=== PATIENT | male | born 1955 | race Caucasian/White ===

== ENCOUNTER → 2016-12-22 | Outpatient (CLI) | payer OTHER | LOC: FIMAGING 16:31 | DX: N50.89 Other specified disorders of the male genital organs (principal); N43.3 Hydrocele, unspecified ==

== ENCOUNTER 2017-01-05 12:58 | Day surgery (SDC) | payer OTHER ==
[2017-01-05] MEDS ORDERED: ceFAZolin 2 GM/DEXTROSE 100 ML IV ONE (13:17)
[2017-01-05] MEDS ORDERED: LR 1,000 ML IV ONE (13:21)
--- NOTE | 2017-01-05 14:47 | PDHPUP ---
History & Physical Update H&P update statement: This history and physical update is based on an assessment of the patient which was completed after admission or registration (within 24 hours), but prior to the surgery/procedure. H&P update: no change in patient's condition since H&P completed
[2017-01-05] MEDS ORDERED: BUPIVACAINE 0.5% 30 ML SDV ONE (16:30)
[2017-01-05] MEDS ORDERED: MIDAZOLAM 2 MG/2 ML VIAL IVP ONE (17:03)
--- NOTE | 2017-01-05 17:04 | PDANEPAE ---
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 ORAL SURGERY CHILD ANE Review of Systems - Exercise capacity METS (RN): 4 METS ANE Patient History - Allergies Allergies/Adverse Reactions: oxycodone [From Percocet] Allergy (Verified 01/03/17 14:19) Rash - Home Medications Home Medications: CLONAZEPAM TID 01/03/17 [Last Taken 01/05/17 06:00] Divalproex TID 01/03/17 [Last Taken 01/05/17 07:00] IBUPROFEN PRN 01/03/17 [Last Taken 01/03/17 22:00] - NPO status NPO Status: no food or drink >8 hours NPO Since - Liquids (Date): 01/05/17 NPO Since - Liquids (Time): 11:30 NPO Since - Solids (Date): 01/04/17 NPO Since - Solids (Time): 18:00 - Anes Hx Anes Hx: no prior problems - Smoking Hx Smoking Status: Never smoked ANE Labs/Vital Signs - Vital Signs Blood Pressure: 133/85 Heart Rate: 91 Respiratory Rate: 18 O2 Sat (%): 91 Height: 167.64 cm Weight: 78.925 kg ANE Physical Exam - Airway Mallampati Score: Class 2 Mouth exam: normal dental/mouth exam - Pulmonary Pulmonary: no respiratory distress - Cardiovascular Cardiovascular: regular rate and rhythym - ASA Status ASA Status: I ANE Anesthesia Plan Anesthesia Plan: GA w LMA
[2017-01-05] MEDS ORDERED: DEXAMETHASONE 4 MG/ML VIAL ONE (17:08)
[2017-01-05] MEDS ORDERED: LIDOCAINE 2% 5 ML SDV ONE (17:08)
[2017-01-05] MEDS ORDERED: KETOROLAC 30 MG/1 ML SDV ONE (17:08)
[2017-01-05] MEDS ORDERED: ONDANSETRON 4 MG/2 ML VIAL ONE (17:08)
[2017-01-05] MEDS ORDERED: fentaNYL 100 MCG/2 ML INJ ONE (17:09)
[2017-01-05] MEDS ORDERED: PROPOFOL 200 MG/20 ML VIAL ONE (17:09)
--- NOTE | 2017-01-05 18:38 | POSTOPPROG ---
Post Op Note Date of Operation: 01/05/17 Surgeon: Trino Farooq (# [id number]) Anesthesia: LMA, Local (Specify) (0.5% Marcaine without epi) Pre-op Diagnosis: Right testis mass Post-op Diagnosis: Right testis mass Procedure: Right radical orchiectomy Findings: See op note Inf/Abcess present in the surg proc area at time of surgery?: No EBL: Minimal (10 cc) Complications: None Specimen(s): Right testis & proximal spermatic cord
[2017-01-05] MEDS ORDERED: fentaNYL 100 MCG/2 ML INJ IVP PRN (18:44)
[2017-01-05] MEDS ORDERED: NALOXONE HCL 0.4 MG/ML INJ IVP PRN (18:44)
[2017-01-05] MEDS ORDERED: LR 500 ML IV PRN (18:44)
[2017-01-05] MEDS ORDERED: ONDANSETRON 4 MG/2 ML VIAL IVP PRN (18:44)
[2017-01-05] MEDS ORDERED: HYDROmorphONE/DILAUDID 1 MG/ML SYR IVP PRN (18:44)
[2017-01-05] MEDS ORDERED: MEPERIDINE 25 MG/ML SYR IVP PRN (18:44)
--- NOTE | 2017-01-05 18:44 | POSTANESTH ---
Post Anesthetic Evaluation Cardiovascular Status: Normal, Stable Respiratory Status: Normal, Stable Level of Consciousness/Mental Status: Can Participate in Eval Pain Control: Adequate, Prn Tx Ordered Nausea/Vomiting Control: Adequate, Prn Tx Ordered Complications Possibly Related to Anesthesia: None Noted
[2017-01-05] MEDS ORDERED: HYDROCODONE/APAP 10/325 TAB PO PRN (18:46)
[2017-01-05 19:20] VITALS: TEMP 97.7
[2017-01-05 19:22] VITALS: RESP 16; O2SAT 98
--- NOTE | 2017-01-05 19:47 | GOP ---
[f rep st] OPERATIVE REPORT DATE OF OPERATION: 01/05/2017 SURGEON: Trino Farooq MD ANESTHESIA: Laryngeal mask with local. PREOPERATIVE DIAGNOSIS: Large right testicular mass. POSTOPERATIVE DIAGNOSIS: Large right testicular mass. PROCEDURE PERFORMED: Right radical inguinal orchiectomy. FINDINGS: Extremely enlarged and abnormal right testicular epididymal complex and proximal spermatic cord. This process appeared to be contained within the tunica vaginalis. SPECIMENS: Right testis and proximal spermatic cord. INDICATIONS: This gentleman recently presented to my office with a large right scrotal mass. Evaluation revealed evidence worrisome for this mass originating from the testis. There was no evidence of inguinal hernia on examination nor on CT imaging. The patient presents for operative management at this time. The indications for the procedures as well as potential risks and complications were discussed with the patient preoperatively. He appeared to understand, his questions were answered, and he wished to proceed. Written informed surgical consent was thereafter obtained. DESCRIPTION OF PROCEDURE: The patient was brought to the operating room and administered laryngeal mask anesthesia. He was carefully placed in the supine position on the operating room table. The lower abdomen and genitalia were sterilely prepped with Betadine scrub and paint, then draped in the usual sterile fashion. A total of 30 cc of 0.5% Marcaine without epinephrine was used for local anesthetic. An extended right inguinal incision was made with the scalpel and carried through the subcutaneous tissue with electrocautery. The right testis/epididymal complex and proximal spermatic cord were immediately noted. They were extremely enlarged. The external oblique aponeurosis was not seen. The ilioinguinal nerve was also not seen. I was able to isolate the spermatic cord at the level of the pubic tubercle with a quarter-inch [place] drain. A tourniquet was created and this was placed near the level of the internal inguinal ring. I then carefully dissected the tunica vaginalis from the surrounding scrotal structures. The gubernacular attachments were ligated with 3-0 Vicryl ties. The spermatic cord was then divided into 2 segments and ligated with a combination of 2-0 silk stick ties and free ties. The stick ties were left long in the event they needed to be identified for future operative purposes. The testis and proximal spermatic cord were then divided and passed off the table. There was no obvious extravaginal extension of any type of cancerous process appreciated grossly. The operative site was carefully inspected. Any remaining bleeding was ligated with 3-0 Vicryl free ties and electrocautery as necessary. The subcutaneous layers of the incision were reapproximated with a running 2-0 Vicryl, followed by a more superficial running 3-0 Vicryl suture. The skin was reapproximated with a running 4-0 Monocryl suture in a subcuticular fashion. The incision was dressed with Dermabond. The patient was then awakened, extubated, transferred to his bed, then taken to the recovery room. He tolerated the procedure well overall. ESTIMATED BLOOD LOSS: Approximately 10 cc. COMPLICATIONS: None. DISPOSITION: He was transferred to the recovery room in stable condition. /[id number]/MODL MTDD
[2017-01-05 20:01] VITALS: BP 126/78; PULSE 80
== END 2017-01-05 20:01 | disposition home or self-care (01) ==
LOC: FSGY 12:58
PROVIDERS: ATTEND Specialist
DX: N50.9 Disorder of male genital organs, unspecified (principal)
CPT/HCPCS: J0690; J1100; J1885; J2250; J2405; J2704; J3010

== ENCOUNTER → 2017-04-13 | Outpatient (CLI) | payer OTHER ==
[~2017-04-13] MED LIST: IOPAMIDOL (ISOVUE-300) 100 ML BTL ONE
== END ==
LOC: FIMAGING 09:28
PROVIDERS: ATTEND Family Medicine
DX: C49.9 Malignant neoplasm of connective and soft tissue, unspecified (principal); R19.09 Other intra-abdominal and pelvic swelling, mass and lump
CPT/HCPCS: 74177; Q9967

== ENCOUNTER → 2017-04-24 | Outpatient (CLI) | payer OTHER | LOC: BMCIMAGING 12:17 | PROVIDERS: ATTEND Family Medicine | DX: R19.09 Other intra-abdominal and pelvic swelling, mass and lump (principal) ==

== ENCOUNTER → 2017-04-28 | Outpatient (CLI) | payer OTHER ==
[~2017-04-28] MED LIST changes: +GADOBUTROL 10 ML VIAL IVP ONE; -IOPAMIDOL (ISOVUE-300) 100 ML BTL ONE
== END ==
LOC: FIMAGING 08:52
PROVIDERS: ATTEND Family Medicine
DX: D18.03 Hemangioma of intra-abdominal structures (principal)
CPT/HCPCS: 74183; A9585

== ENCOUNTER 2017-05-11 08:20 | Day surgery (SDC) | payer OTHER ==
[2017-05-11] MEDS ORDERED: FLUMAZENIL 0.5 MG/5 ML MDV IVP PRN (08:31)
[2017-05-11] MEDS ORDERED: PROTAMINE SULFATE 50 MG/5 ML VIAL IVP PRN (08:31)
[2017-05-11] MEDS ORDERED: fentaNYL 100 MCG/2 ML INJ IVP PRN (08:31)
[2017-05-11] MEDS ORDERED: GLUCAGON HCL 1 MG VIAL IVP PRN (08:31)
[2017-05-11] MEDS ORDERED: HEPARIN 10,000 UNIT/10 ML MDV IVP PRN (08:31)
[2017-05-11] MEDS ORDERED: ALTEPLASE 2 MG VIAL IVP PRN (08:31)
[2017-05-11] MEDS ORDERED: NALOXONE HCL 0.4 MG/ML INJ IVP PRN (08:31)
[2017-05-11] MEDS ORDERED: MIDAZOLAM 2 MG/2 ML VIAL IVP PRN (08:31)
[2017-05-11] MEDS ORDERED: MEPERIDINE 25 MG/ML SYR IVP PRN (08:31)
[2017-05-11] MEDS ORDERED: NS 1,000 ML IV SCH (08:45)
[2017-05-11 09:59] LABS: INR 0.96 (0.83-1.16)
[2017-05-11] MEDS ORDERED: fentaNYL 100 MCG/2 ML INJ ONE (10:57)
[2017-05-11] MEDS ORDERED: MIDAZOLAM 2 MG/2 ML VIAL ONE (10:57)
[2017-05-11] MEDS ORDERED: LIDOCAINE 1% 300 MG/30 ML SDV ONE (11:56)
[2017-05-11] MEDS ORDERED: BUPIVACAINE 0.5% 30 ML SDV ONE (11:56)
--- NOTE | 2017-05-11 11:58 | PDGENHP ---
History & Physical Chief Complaint: Bone lesions History of Present Illness: 61 yo M w h/o head injury who is s/p right orchiectoma in 12/2016. Pathology demonstrated liposarcoma. Suspicious lesions in spine on recent MRI dated 04/28/2017. Endorses LBP with prolonged sitting. Presents today for L1 bone biopsy. Biopsy of larger lesion with similar signal characteristics in L3 chosen instead. Pertinent Past, Social, Family History: Non-contributory Relevant Physical Exam: Spine NT to palpation, good ROM Cardiorespiratory Assessment: RRR, CTAB
[2017-05-11] MEDS ORDERED: ONDANSETRON 4 MG/2 ML VIAL IVP PRN (12:02)
[2017-05-11] MEDS ORDERED: ACETAMINOPHEN 325 MG TAB PO PRN (12:02)
--- NOTE | 2017-05-11 12:02 | PDPROPOC ---
Sedation Plan of Care Sedation Plan of Care: vital signs stable, mental status noted, patient educated of risks, benefits, alternatives, patient can tolerate sedation ASA Classification: ASA 3 Planned drugs: fentanyl, midazolam Mallampati Score: Class 1 Mallampati Reference Image: Patient passed 3-3-2 rule?: Yes
--- NOTE | 2017-05-11 12:05 | PDRADPN ---
Radiology Procedure Note Date of Procedure: 05/11/17 Radiologist: Henry Felix Anesthesia: IV Sedation Pre-op Diagnosis: Liposarcoma, suspicious bone lesions Post-op Diagnosis: Same Indication: Suspicious bone lesions Procedure: L3 bone biopsy Finding(s): See dicated report Inf/Abcess present in the surg proc area at time of surgery?: No EBL: Minimal Complications: No immediate Specimen(s): 3 cores obtained, placed in formalin and submitted to pathology
[2017-05-11 12:47] VITALS: O2SAT 95
[2017-05-11 13:01] VITALS: BP 117/81; PULSE 77; RESP 17; TEMP 208.9
== END 2017-05-11 13:01 | disposition home or self-care (01) ==
LOC: FIMAGING 08:20
PROVIDERS: ATTEND Physician Assistant
PROC: 0QB03ZX Excision of Lumbar Vertebra, Percutaneous Approach, Diagnostic (ICD-10-PCS; principal; 2017-05-11 12:00)
DX: C49.9 Malignant neoplasm of connective and soft tissue, unspecified (principal); M54.5 Low back pain; Z85.47 Personal history of malignant neoplasm of testis
CPT/HCPCS: J2250; J3010

== ENCOUNTER → 2017-05-25 | Outpatient (CLI) | payer OTHER | LOC: BHFA 13:15 | PROVIDERS: ATTEND Internal Medicine Interventional Cardiology | DX: Z51.11 Encounter for antineoplastic chemotherapy (principal) ==

== ENCOUNTER → 2017-05-29 | Day surgery (SDC) | payer OTHER | END | disposition home or self-care (01) | LOC: FIMAGING 08:27 | PROVIDERS: ATTEND Internal Medicine Hematology & Oncology | PROC: 02HV33Z Insertion of Infusion Device into Superior Vena Cava, Percutaneous Approach (ICD-10-PCS; principal; 2017-05-29) | DX: C49.9 Malignant neoplasm of connective and soft tissue, unspecified (principal) | CPT/HCPCS: 36569; 77001; C1751 ==

== ENCOUNTER → 2017-05-30 | Outpatient (CLI) | payer OTHER ==
[~2017-05-30] MED LIST changes: -GADOBUTROL 10 ML VIAL IVP ONE; +LIDOCAINE 1% 300 MG/30 ML SDV ONE
== END ==
LOC: FIMAGING 08:26
PROVIDERS: ATTEND Internal Medicine Hematology & Oncology
PROC: BH48ZZZ Ultrasonography of Lower Extremity (ICD-10-PCS; principal; 2017-05-30)
PROC: 0JBC3ZX Excision of Pelvic Region Subcutaneous Tissue and Fascia, Percutaneous Approach, Diagnostic (ICD-10-PCS; principal; 2017-05-30)
DX: L90.5 Scar conditions and fibrosis of skin (principal); C62.90 Malignant neoplasm of unspecified testis, unspecified whether descended or undescended

== ENCOUNTER 2018-07-23 20:07 | Inpatient (IN) | payer OTHER ==
[2018-07-23] MEDS ORDERED: NS 1,000 ML IV ONE (20:11)
--- NOTE | 2018-07-23 20:14 | EDPHY ---
H & P Time Seen by Provider: 07/23/18 20:11 HPI/ROS: CHIEF COMPLAINT: Stroke alert HISTORY OF PRESENT ILLNESS: Patient is a 63-year-old man with a history of traumatic brain injury, seizures and testicular cancer and memory loss who apparently lives alone. EMS report that family visited him 3 weeks ago and he seemed to be at his baseline but when they visited him today he seemed paranoid and shaky. The patient was without complaints. When EMS got him into the ambulance also and he stopped talking but would answer the questions by blinking. They were concerned for stroke and called a stroke alert however upon arrival to the emergency department he began talking again. His NIH stroke score arrival is 3 for slight right-sided facial droop and dysarthria which the patient states is baseline after his traumatic brain injury. He denies being in any pain. He denies recent injury. No fevers. No report of nausea vomiting or GI symptoms. Severity: Moderate Modifying factors: Improved spontaneously REVIEW OF SYSTEMS: Constitutional: denies: chills, fever, recent illness, recent injury EENTM: denies: blurred vision, double vision, nose congestion Respiratory: denies: cough, shortness of breath Cardiac: denies: chest pain, irregular heart rate, lightheadedness, palpitations Gastrointestinal/Abdominal: denies: abdominal pain, diarrhea, nausea, vomiting, blood streaked stools Genitourinary: denies: dysuria, frequency, hematuria, pain Musculoskeletal: denies: joint pain, muscle pain Skin: denies: lesions, rash, jaundice, bruising Neurological: See HPI Hematologic/Lymphatic: denies: blood clots, easy bleeding, easy bruising Immunologic/allergic: denies: HIV/AIDS, transplant 10 systems reviewed and negative except as noted EXAM: GENERAL: Well-appearing, well-nourished and in no acute distress. HEAD: Atraumatic, normocephalic. EYES: Pupils equal round and reactive to light, extraocular movements intact, sclera anicteric, conjunctiva are normal. ENT: TMs normal, nares patent, oropharynx clear without exudates. Moist mucous membranes. NECK: Normal range of motion, supple without lymphadenopathy or JVD. LUNGS: Breath sounds clear to auscultation bilaterally and equal. No wheezes rales or rhonchi. HEART: Regular rate and rhythm without murmurs, rubs or gallops. ABDOMEN: Soft, nontender, normoactive bowel sounds. No guarding, no rebound. No masses appreciated. BACK: No CVA tenderness, no spinal tenderness, step-offs or deformities EXTREMITIES: Normal range of motion, no pitting or edema. No clubbing or cyanosis. NEUROLOGICAL: Right facial droop, slight dysarthria, no pronator drift, normal leg elevation. Cranial nerves II through XII grossly intact. 5/5 strength, normal movement in all extremities, normal sensation, normal reflexes PSYCH: Tells us thank you for evaluating him SKIN: Warm, dry, normal turgor, no visible rashes or lesions. Source: Patient Exam Limitations: No limitations - Medical/Surgical History Hx Asthma: No Hx Chronic Respiratory Disease: No Hx Diabetes: No Hx Cardiac Disease: No Hx Renal Disease: No Hx Cirrhosis: No Hx Alcoholism: No Other PMH: Traumatic brain injury, seizure, memory loss, testicular cancer - Family History Significant Family History: No pertinent family hx - Social History Smoking Status: Never smoked Alcohol Use: None Constitutional: Initial Vital Signs Temperature (C) 37 C 07/23/18 20:24 Heart Rate 107 H 07/23/18 20:24 Respiratory Rate 20 07/23/18 20:24 Blood Pressure 128/94 H 07/23/18 20:24 O2 Sat (%) 99 07/23/18 20:24 O2 Delivery Mode Nasal Cannula O2 (L/minute) 2 Allergies/Adverse Reactions: oxycodone [From Percocet] Allergy (Verified 07/23/18 20:26) Rash Home Medications: Medication Instructions Recorded Divalproex 750 mg PO DAILY 01/03/17 clonazePAM [Clonazepam] 1 mg PO TID #0 01/03/17 Medical Decision Making - Diagnostics EKG Interpretation: An EKG obtained and was read and documented in trace view. Please see trace view for full reading and report. Sinus rhythm, no acute ischemic changes, nonspecific repolarization abnormalities Imaging Results: Imaging Impressions Chest X-Ray 07/23/18 20:12 Impression: Normal chest x-ray. Head CT 07/23/18 20:12 Impression: 1. Marked central atrophy. This could be related to volume loss from prior remote trauma. Rule out NPH. Comparison with any prior remote imaging may be helpful. 2. No hemorrhage, mass effect, or definite acute peripheral infarct. If symptoms worsen, additional imaging may be necessary. Findings discussed with Jaun eVga M.D. at 4 hour, 07/23/2018. Imaging: Discussed imaging studies w/ call manager Radiologist ED Course/Re-evaluation: It is very difficult to assess exactly with the chief complaint is. I have downgraded this is not a stroke alert. The patient is answering all questions appropriately and states that his facial droop and dysarthria baseline. He is no longer blinking to communicate which she apparently did for few minutes with EMS. According to paramedics the family's original concern was shaking and paranoia. Family is supposed only on their way, will get further history from them. 9:05 p.m. the family has arrived. I spoke with them at length. They are concerned because the patient has been tapering off of Klonopin and Depakote over the last several months which she has taken for several decades to help control the symptoms of his traumatic brain injury. They are not sure what symptoms. They have never seen him have a seizure. He states that he stopped taking them altogether about 3 weeks ago. Family states that he speaks daily with his sister on the phone who has not noticed anything abnormal until yesterday when he stopped answering his phone. Today he would not answer the phone for any family which is very unusual for him. They went over and found him talking about unusual things such as blessing people and giving way [place] of dollars. They also state that he occasionally has slight tremors and occasionally has staring spells. Currently the patient answers questions appropriately but then also occasionally talks about blessing me and lasting other people in the hospital. He adamantly refuses to go back on Klonopin and Depakote. He states that he wants to be organic. Will treat with mg of Ativan for concern of absent seizures he and psychosis. Will likely admit to the medical service. 9:20 p.m. discussed the case with Dr. Bond who will admit. 10:00 p.m. Skull to the room. The patient was having an episode that appeared consistent with some type of partial seizure. He is alert and would follow commands but was shaking both hands and doing repetitive movements with pearly his right hand. He would not speak during the episode. I ordered skin dose of Ativan. resolved after few minutes. Differential Diagnosis: Partial list of the Differential diagnosis considered include but were not limited to; psychosis, seizures, withdrawal, seizures and although unlikely based on the history and physical exam, I also considered intoxication, infection, CVA. - Data Points Laboratory Results: Laboratory Results 07/23/18 20:07 07/23/18 20:07 07/23/18 07/23/18 07/23/18 20:39 20:32 20:12 WBC RBC Hgb POC Hgb 17.3 gm/dL gm/dL (13.7-17.5) Hct POC Hct 51 % % (40-51) MCV MCH MCHC RDW Plt Count MPV Neut % (Auto) Lymph % (Auto) [place] % (Auto) Eos % (Auto) Baso % (Auto) Nucleat RBC Rel Count Absolute Neuts (auto) Absolute Lymphs (auto) Absolute Monos (auto) Absolute Eos (auto) Absolute Basos (auto) Absolute Nucleated RBC Immature Gran % Immature Gran # VBG Lactic Acid 1.3 mmol/L mmol/L (0.7-2.1) POC Sodium 141 mEq/L mEq/L (135-145) Sodium POC Potassium 3.7 mEq/L mEq/L (3.3-5.0) Potassium POC Chloride 102 mEq/L mEq/L (97-110) Chloride Carbon Dioxide POC Total CO2 27 mEq/L mEq/L (22-31) Anion Gap POC BUN 33 mg/dL H mg/dL (7-23) BUN Creatinine POC Creatinine 1.0 mg/dL mg/dL (0.7-1.3) Estimated GFR Glucose POC Glucose 105 mg/dL H mg/dL (70-100) Calcium Total Bilirubin Conjugated Bilirubin Unconjugated Bilirubin AST ALT Alkaline Phosphatase POC Troponin I 0.01 ng/mL ng/mL (0.00-0.08) Total Protein Albumin Valproic Acid Ethyl Alcohol 07/23/18 07/23/18 07/23/18 20:07 20:07 20:07 WBC 7.89 10^3/uL 10^3/uL (3.80-9.50) RBC 5.26 10^6/uL 10^6/uL (4.40-6.38) Hgb 16.9 g/dL g/dL (13.7-17.5) POC Hgb Hct 49.4 % % (40.0-51.0) POC Hct MCV 93.9 fL fL (81.5-99.8) MCH 32.1 pg pg (27.9-34.1) MCHC 34.2 g/dL g/dL (32.4-36.7) RDW 12.1 % % (11.5-15.2) Plt Count 222 10^3/uL 10^3/uL (150-400) MPV 10.5 fL fL (8.7-11.7) Neut % (Auto) 65.2 % % (39.3-74.2) Lymph % (Auto) 24.8 % % (15.0-45.0) [place] % (Auto) 9.1 % % (4.5-13.0) Eos % (Auto) 0.1 % L % (0.6-7.6) Baso % (Auto) 0.5 % % (0.3-1.7) Nucleat RBC Rel Count 0.0 % % (0.0-0.2) Absolute Neuts (auto) 5.14 10^3/uL 10^3/uL (1.70-6.50) Absolute Lymphs (auto) 1.96 10^3/uL 10^3/uL (1.00-3.00) Absolute Monos (auto) 0.72 10^3/uL 10^3/uL (0.30-0.80) Absolute Eos (auto) 0.01 10^3/uL L 10^3/uL (0.03-0.40) Absolute Basos (auto) 0.04 10^3/uL 10^3/uL (0.02-0.10) Absolute Nucleated RBC 0.00 10^3/uL 10^3/uL (0-0.01) Immature Gran % 0.3 % % (0.0-1.1) Immature Gran # 0.02 10^3/uL 10^3/uL (0.00-0.10) VBG Lactic Acid POC Sodium Sodium 141 mEq/L mEq/L (135-145) POC Potassium Potassium 4.2 mEq/L mEq/L (3.5-5.2) POC Chloride Chloride 98 mEq/L mEq/L (97-110) Carbon Dioxide 25 mEq/l mEq/l (22-31) POC Total CO2 Anion Gap 18 mEq/L H mEq/L (6-14) POC BUN BUN 33 mg/dL H mg/dL (7-23) Creatinine 1.0 mg/dL mg/dL (0.7-1.3) POC Creatinine Estimated GFR > 60 Glucose 106 mg/dL H mg/dL (70-100) POC Glucose Calcium 10.2 mg/dL mg/dL (8.5-10.4) Total Bilirubin 2.4 mg/dL H mg/dL (0.1-1.4) Conjugated Bilirubin 0.6 mg/dL H mg/dL (0.0-0.5) Unconjugated Bilirubin 1.8 mg/dL H mg/dL (0.0-1.1) AST 30 IU/L IU/L (17-59) ALT 27 IU/L IU/L (21-72) Alkaline Phosphatase 62 IU/L IU/L (38-126) POC Troponin I Total Protein 8.6 g/dL H g/dL (6.3-8.2) Albumin 5.5 g/dL H g/dL (3.5-5.0) Valproic Acid < 10.0 mcg/mL L mcg/mL (50.0-150.0) Ethyl Alcohol < 10 mg/dL mg/dL (0-10) Medications Given: Discontinued Medications Sodium Chloride (Ns) 1,000 mls @ 0 mls/hr IV ONCE ONE; Wide Open PRN Reason: Protocol Stop: 07/23/18 20:12 Last Admin: 07/23/18 20:49 Dose: 1,000 mls Lorazepam (Ativan Injection) 1 mg IVP EDNOW ONE Stop: 07/23/18 21:05 Last Admin: 07/23/18 21:10 Dose: 1 mg Lorazepam (Ativan Injection) 1 mg IVP EDNOW ONE Stop: 07/23/18 22:03 Last Admin: 07/23/18 22:03 Dose: 1 mg Point of Care Test Results: Chemistry 07/23/18 07/23/18 20:32 20:12 POC Sodium 141 mEq/L mEq/L (135-145) POC Potassium 3.7 mEq/L mEq/L (3.3-5.0) POC Chloride 102 mEq/L mEq/L (97-110) POC Total CO2 27 mEq/L mEq/L (22-31) POC BUN 33 mg/dL H mg/dL (7-23) POC Creatinine 1.0 mg/dL mg/dL (0.7-1.3) POC Glucose 105 mg/dL H mg/dL (70-100) POC Troponin I 0.01 ng/mL ng/mL (0.00-0.08) ISTAT H&H 07/23/18 20:12 POC Hgb 17.3 gm/dL gm/dL (13.7-17.5) POC Hct 51 % % (40-51) Departure - Departure [facility] Clinical Impression: Absence seizure Psychosis Qualifiers: Psychosis type: unspecified psychosis type Qualified Code(s): F29 - Unspecified psychosis not due to a substance or known physiological condition Condition: Fair
[2018-07-23 20:48] LABS: PLATELET COUNT 222 10^3/uL (150-400)
--- NOTE | 2018-07-23 20:53 | CPEKG ---
Test Reason : OPEN Blood Pressure : / mmHG Vent. Rate : 097 BPM Atrial Rate : 100 BPM P-R Int : 134 ms QRS Dur : 070 ms QT Int : 355 ms P-R-T Axes : 039 063 000 degrees QTc Int : 451 ms Sinus rhythm Probable left atrial enlargement Confirmed by Jaun Vega ([id number]) on 07/23/2018 8:53:33 PM Referred By: Jaun Vega Confirmed By:Jaun Vega
[2018-07-23] MEDS ORDERED: LORazepam 2 MG/ML INJ IVP ONE ×2 (21:04→22:02)
[2018-07-23] MEDS ORDERED: LORazepam 2 MG/ML INJ IVP PRN (21:49)
[2018-07-23] MEDS ORDERED: HYDROCODONE/APAP 5/325 TAB PO PRN (21:49)
[2018-07-23] MEDS ORDERED: ONDANSETRON DISINTEGRATING 4 MG TAB PO PRN (21:49)
[2018-07-23] MEDS ORDERED: LORazepam 0.5 MG TAB PO PRN (21:49)
[2018-07-23] MEDS ORDERED: oxyCODONE IR 5 MG TAB PO PRN (21:49)
[2018-07-23] MEDS ORDERED: ACETAMINOPHEN 325 MG TAB PO PRN (21:49)
[2018-07-23] MEDS ORDERED: ONDANSETRON 4 MG/2 ML VIAL IVP PRN (21:49)
[2018-07-23] MEDS ORDERED: NS 1,000 ML IV SCH (22:00)
--- NOTE | 2018-07-23 23:06 | PDGENHP ---
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 Patient claims that he went off of the medications slowly, over weeks, but also is unable to give much history around how that was done and if he had any guidance from his PCP, DR. Treviño. Patient is accompanied by his two children and son in law who note that he has always been quite normal in his thinking and 'very sharp' but that they had not seen him in about 3 weeks and when they saw him today his thinking seemed bizarre, he was paranoid and delusional in his thinking and was having episodes of staring off into space and being unresponsive which they have never seen in him before. Patients sister was trying to reach him apparently for days and he was not answering the phone. Patient is very defensive and states he does not want to answer questions by me because he does not trust me and that he and his family will have 'guards' while they are here. He also states that he will not take any medications that we offer him and that he does not believe he is in any way different than he usually is, other than that he is 'more clear' now that he is off medications. He notes he has not been sleeping and does not know the last time he had a full nights sleep, but will have occasional short naps throughout the day. He admits he has not been eating much. Family confirms that all of this is new for him and not his usual behavior. History Information - Allergies/Home Medication List Allergies/Adverse Reactions: oxycodone [From Percocet] Allergy (Verified 07/23/18 20:26) Rash Home Medications: Divalproex 750 mg PO DAILY 01/03/17 [Last Taken 06/25/18] clonazePAM [Clonazepam] 1 mg PO TID #0 01/03/17 [Last Taken 06/25/18] I have personally reviewed and updated: family history, medical history, social history, surgical history - Past Medical History cancer (liposarcoma of the testicle) Additional medical history: TBI - Surgical History Reports: cancer surgery (orchiectomy) - Family History Additional family history: father with stroke. mother with dementia - Social History Smoking Status: Never smoked Alcohol Use: None Drug Use: None Review of Systems Review of Systems: ROS: 10pt was reviewed & negative except for what was stated in HPI & below Physical Exam Physical Exam: Temp Pulse Resp BP Pulse Ox 36.8 C 85 20 100/75 97 07/23/18 22:40 07/23/18 22:40 07/23/18 22:40 07/23/18 22:40 07/23/18 22:40 Constitutional: no apparent distress, appears nourished Eyes: PERRL, anicteric sclera Ears, Nose, Mouth, Throat: moist mucous membranes, hearing normal Cardiovascular: regular rate and rhythym, no murmur, rub, or gallop, No edema Respiratory: no respiratory distress, no rales or rhonchi Gastrointestinal: normoactive bowel sounds, soft, non-tender abdomen Genitourinary: no bladder tenderness Skin: warm, normal color Musculoskeletal: no muscle tenderness Neurologic: CN II-XII Intact, other (unable to assess orientation given his agitation) Psychiatric: agitated, No interacting appropriately, No thought process linear Lab Data & Imaging Review 07/23/18 20:07 07/23/18 20:07 WBC 7.89 10^3/uL (3.80-9.50) 07/23/18 20:07 RBC 5.26 10^6/uL (4.40-6.38) 07/23/18 20:07 Hgb 16.9 g/dL (13.7-17.5) 07/23/18 20:07 POC Hgb 17.3 gm/dL (13.7-17.5) 07/23/18 20:12 Hct 49.4 % (40.0-51.0) 07/23/18 20:07 POC Hct 51 % (40-51) 07/23/18 20:12 MCV 93.9 fL (81.5-99.8) 07/23/18 20:07 MCH 32.1 pg (27.9-34.1) 07/23/18 20:07 MCHC 34.2 g/dL (32.4-36.7) 07/23/18 20:07 RDW 12.1 % (11.5-15.2) 07/23/18 20:07 Plt Count 222 10^3/uL (150-400) 07/23/18 20:07 MPV 10.5 fL (8.7-11.7) 07/23/18 20:07 Neut % (Auto) 65.2 % (39.3-74.2) 07/23/18 20:07 Lymph % (Auto) 24.8 % (15.0-45.0) 07/23/18 20:07 [place] % (Auto) 9.1 % (4.5-13.0) 07/23/18 20:07 Eos % (Auto) 0.1 % (0.6-7.6) L 07/23/18 20:07 Baso % (Auto) 0.5 % (0.3-1.7) 07/23/18 20:07 Nucleat RBC Rel Count 0.0 % (0.0-0.2) 07/23/18 20:07 Absolute Neuts (auto) 5.14 10^3/uL (1.70-6.50) 07/23/18 20:07 Absolute Lymphs (auto) 1.96 10^3/uL (1.00-3.00) 07/23/18 20:07 Absolute Monos (auto) 0.72 10^3/uL (0.30-0.80) 07/23/18 20:07 Absolute Eos (auto) 0.01 10^3/uL (0.03-0.40) L 07/23/18 20:07 Absolute Basos (auto) 0.04 10^3/uL (0.02-0.10) 07/23/18 20:07 Absolute Nucleated RBC 0.00 10^3/uL (0-0.01) 07/23/18 20:07 Immature Gran % 0.3 % (0.0-1.1) 07/23/18 20:07 Immature Gran # 0.02 10^3/uL (0.00-0.10) 07/23/18 20:07 VBG Lactic Acid 1.3 mmol/L (0.7-2.1) 07/23/18 20:39 POC Sodium 141 mEq/L (135-145) 07/23/18 20:12 Sodium 141 mEq/L (135-145) 07/23/18 20:07 POC Potassium 3.7 mEq/L (3.3-5.0) 07/23/18 20:12 Potassium 4.2 mEq/L (3.5-5.2) 07/23/18 20:07 POC Chloride 102 mEq/L (97-110) 07/23/18 20:12 Chloride 98 mEq/L (97-110) 07/23/18 20:07 Carbon Dioxide 25 mEq/l (22-31) 07/23/18 20:07 POC Total CO2 27 mEq/L (22-31) 07/23/18 20:12 Anion Gap 18 mEq/L (6-14) H 07/23/18 20:07 POC BUN 33 mg/dL (7-23) H 07/23/18 20:12 BUN 33 mg/dL (7-23) H 07/23/18 20:07 Creatinine 1.0 mg/dL (0.7-1.3) 07/23/18 20:07 POC Creatinine 1.0 mg/dL (0.7-1.3) 07/23/18 20:12 Estimated GFR > 60 07/23/18 20:07 Glucose 106 mg/dL (70-100) H 07/23/18 20:07 POC Glucose 105 mg/dL (70-100) H 07/23/18 20:12 Calcium 10.2 mg/dL (8.5-10.4) 07/23/18 20:07 Total Bilirubin 2.4 mg/dL (0.1-1.4) H 07/23/18 20:07 Conjugated Bilirubin 0.6 mg/dL (0.0-0.5) H 07/23/18 20:07 Unconjugated Bilirubin 1.8 mg/dL (0.0-1.1) H 07/23/18 20:07 AST 30 IU/L (17-59) 07/23/18 20:07 ALT 27 IU/L (21-72) 07/23/18 20:07 Alkaline Phosphatase 62 IU/L (38-126) 07/23/18 20:07 POC Troponin I 0.01 ng/mL (0.00-0.08) 07/23/18 20:32 Total Protein 8.6 g/dL (6.3-8.2) H 07/23/18 20:07 Albumin 5.5 g/dL (3.5-5.0) H 07/23/18 20:07 Valproic Acid < 10.0 mcg/mL (50.0-150.0) L 07/23/18 20:07 Ethyl Alcohol < 10 mg/dL (0-10) 07/23/18 20:07 Visualized and Interpreted Chest x-ray results: Yes Chest X-Ray results: no infiltrate Visualized and Interpreted imaging results: Yes Interpretation: head CT: nothing acute Visualized and Interpreted EKG results: Yes EKG Interpretation: Positive for: normal sinsus rhythm Assessment & Plan Assessment: Absence seizure (Acute) Psychosis (Acute) 63 yo M with hx of liposarcoma and TBI presenting with acute psychosis and ? seizure in setting of discontinuing klonopin and depakote # metabolic encephalopathy: patient presenting with abrupt change in his thinking with episodes of agitation resembling psychosis or joanne as well as periods of blank staring and memory issues which family notes is an abrupt change from his usual thinking. Labs unremarkable, head ct normal but given hx of liposarcoma will get f/u MRI to r/o brain mets. Will ask neurology to evaluate and likely will need psychiatric evaluation if that testing is unremarkable. Could be withdrawal and it is unclear how quickly patient discontinued his medications but will attempt to get him to take some benzos or resume his home medications. # liposarcoma: in right testicle s/p orchiectomy, had issues with poor healing and other concerning areas in skin that were biopsied but not c/w mets # TBI: for which he was reportedly started on depakote and klonopin as above, ? if this was truly bipolar which is now revealing itself # elevated bilirubin: largely unconjugated and likely [place], will check again in am # pre renal azotemia: suspect due to hypovolemia with poor po intake in setting of encephalopathy, will provide IVF, repeat in am # IP status, given multiple active issues and patient unsafe at home Patient new to my care. Old records reviewed and summarized as above. Care plan reviewed with ER doctor, further hx obtained from patients family present at bedside.
[2018-07-23] MEDS: clonazePAM 1 MG TAB PO SCH (23:30)
--- NOTE | 2018-07-24 10:51 | GCON ---
[f rep st] CONSULTATION NEUROLOGY CONSULT REFERRING PHYSICIAN: Dr. Keith CHIEF COMPLAINT: Mental status changes. 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 He also has a history of liposarcoma in a testicle. He states he was put on Depakote and Klonopin for 20+ years for because of the TBI , presumably due to some neuropsychiatric symptoms. In any case, recently after being on the medication for 20+ years, he decided he wanted to be more "organic" and discontinued both these medications. He states that he had some guidance from Dr. Treviño, his PCP and that his last doses of medications were 3 to 5 weeks ago. Last night, family was present. They feel that 3 weeks ago, he was at his baseline and fairly sharp in his thinking, but he seemed bizarre when they saw him yesterday, with paranoid and delusional thinking. There was no overt convulsions. He did seem to have some staring off at times; however, in reviewing the history and nursing staff, the patient is awake and aware, and says he needs "more time to think" when he does not answer questions. He is not losing awareness. There have been no automatisms. No subtle signs of seizure or overt convulsions. He refuses to take his medications now apparently. For home medications, allergies, past medical history, family history, see Dr. Keith's note. REVIEW OF SYSTEMS: Ten-point review was done of systems and only pertinent to the HPI. LABORATORY/IMAGING: Labs show some elevated bilirubin, normal AST and ALT. Valproic acid is less than 10. Ethyl alcohol less than 10. No white count. Head CT was negative in terms of acute findings. He does have some atrophy and some enlarged ventricles. PHYSICAL EXAMINATION: VITAL SIGNS: Blood pressure 117/75, temperature 36.6, heart rate 70s to 80s. GENERAL: This patient is awake and alert. He is very pleasant. On higher mental function, he has a very quiet way of speaking and an unusual affect and speech pattern, but there is no aphasia. He names 5/5, repeat 5/5, and follows commands 5/5. Cranial nerve exam: He has symmetric face. Normal extraocular movements. On motor exam, he has normal strength in all 4 extremities. Normal diqjap-vhwr-rlcvvo and qefo-fd-hknw bilaterally. There is asymmetric pupils with the right being larger in the left that he says he has had since . No sensory deficit. Other observations: The patient does not have any automatisms, loss of awareness, or subtle signs of nonconvulsive seizures in my presence. IMPRESSION/PLAN: 1. Outside history of previous traumatic brain injury. 2. History of psychotropic medication use, recently discontinued by patient. 3. Mental status changes. Overall, the patient may be having decompensation of neuropsychiatric symptoms ( secondary to his traumatic brain injury) after he self discontinued psychiatric medications. Certainly, this would fit the temporal profile of his family seeing him 3 weeks ago when he seemed at baseline, and then observing his abnormal thinking since he has come off medications. There has been no overt or subtle signs of seizure to this point from my review of the medical record and examining the patient.. If they develop, the next step would be transfer to [facility] for continuous video EEG monitoring. Head CT shows nothing acute. The degree of ventricular enlargement may be consistent with his degree of atrophy. In any case, if there is ongoing concern about normal-pressure hydrocephalus as an outpatient, we would have him see Dr. Cyril Kenny for full NPH evaluation. He also has a history of testicular cancer, because of this, I think getting an MRI brain with and without contrast would be reasonable to exclude metastatic lesions. We will try to get that done today. If MRI is negative, then I would recommend psychiatric consultation for review of the history and further treatment recommendations. No further recommendations now. We will follow up on the MRI results. Please do not hesitate to call if there are any questions or change in neurologic status. Plan discussed at length with hospitalist nurse. Seventy total minutes floor time today reviewing history, imaging; over 50% in counseling and coordination of care. /[id number]/MODL MTDD
--- NOTE | 2018-07-24 11:30 | HOSPPROG ---
Hospitalist Progress Note Assessment/Plan: 63 yo M with hx of liposarcoma and TBI presenting with acute psychosis and altered mentation in setting of discontinuing klonopin and depakote # metabolic encephalopathy: patient presenting with abrupt change in his thinking with episodes of agitation resembling psychosis or joanne as well as periods of blank staring and memory issues which family notes is an abrupt change from his usual thinking. Onset after discontinuing meds. Labs unremarkable, head ct normal. -check MRI today to r/o mets or other abnormality given h/o liposarcoma -discussed with Dr. Brown, neurologist, who doubts seizures, but if obvious sz activity occurs, would need to transfer for continuous EEG monitoring -resume klonopin (change to prn) and depakote as symptoms started with discontinuation of these meds -psych consult if MRI neg (I contacted [facility] and requested psychiatry consult for tomorrow) -prn zyprexa for agitation / psychosis # liposarcoma: right testicle s/p orchiectomy # TBI: for which he was reportedly started on depakote and klonopin as above, ? if this was truly bipolar which is now revealing itself -as above, psych consult if MRI neg # elevated bilirubin: unconjugated, likely [place] # pre renal azotemia: improved with hydration # dvt pplx: lovenox # dispo: cont inpt Subjective: Pt is pleasant, cooperative, alert and oriented. He understands why he is here. Says he has been off medications for several weeks. He currently denies hallucinations. No villar, vision changes or focal weakness. Objective: Vital Signs Temp Pulse Resp BP Pulse Ox 36.6 C 76 20 120/83 H 95 07/24/18 11:22 07/24/18 11:22 07/24/18 11:22 07/24/18 11:22 07/24/18 11:22 Laboratory Results 07/24/18 05:00 07/23/18 07/24/18 07/25/18 05:59 05:59 05:59 Intake Total 1000 Balance 1000 - Physical Exam Constitutional: no apparent distress Eyes: PERRL Ears, Nose, Mouth, Throat: moist mucous membranes Cardiovascular: regular rate and rhythym Respiratory: no respiratory distress, clear to auscultation Gastrointestinal: normoactive bowel sounds, soft, non-tender abdomen Skin: warm Musculoskeletal: no muscle tenderness Neurologic: AAOx3 Psychiatric: interacting appropriately ICD10 Worksheet Patient Problems: Problems Problem Status Onset Absence seizure Acute Psychosis Acute
[2018-07-24] MEDS ORDERED: clonazePAM 1 MG TAB PO PRN (11:49)
[2018-07-24] MEDS: DIVALPROEX NA 500 MG TAB PO SCH (11:58)
[2018-07-24] MEDS: clonazePAM 1 MG TAB PO SCH (12:13)
--- NOTE | 2018-07-24 13:13 | PDMN ---
Medical Necessity Medical necessity: Change to IP, as of 07/24/18, per MD & [facility] General Discharge Criteria; los >2 mn for ongoing management of metabolic encephalopathy w/abrupt change in thinking, episodes of agitation resembling psychosis or joanne, periods of blank staring & memory issues; onset after discontinuation of meds; requiring further monitoring, MRI, med management & possible Psych consult; hx liposarcoma, TBI
[2018-07-24] MEDS ORDERED: GADOBUTROL 10 ML VIAL IVP ONE (13:29)
--- NOTE | 2018-07-24 14:27 | ASMTCMCOM ---
CM Note CM Note Notes: Chart review conducted. Pt admitted for psychosis after discontinuing medications. Pt has liposarcoma s/p orchiectomy. MRI today to r/o mets. PT eval pending. pt is disabled and has a son and daughter who are local and supportive. CM to follow. D/C Plan: TBD Date Signed: 07/24/2018 02:26 PM Electronically Signed By:Norma Thomas
[2018-07-24] MEDS ORDERED: OLANZapine DISINTEGR 5 MG TAB PO PRN (17:32)
[2018-07-25] MEDS: DIVALPROEX NA 500 MG TAB PO SCH (08:00)
--- NOTE | 2018-07-25 09:16 | HOSPPROG ---
Hospitalist Progress Note Assessment/Plan: 63 yo M with hx of liposarcoma and TBI presenting with acute psychosis and altered mentation in setting of discontinuing klonopin and depakote # metabolic encephalopathy: patient presenting with abrupt change in his thinking with episodes of agitation resembling psychosis or joanne as well as periods of blank staring and memory issues which family notes is an abrupt change from his usual thinking. Onset after discontinuing meds. Labs unremarkable, head ct normal. -discussed with Dr. Brown, neurologist, who doubts seizures, but if obvious sz activity occurs, would need to transfer for continuous EEG monitoring - Dr Brown reviewed MRI, suggests outpt FU with Dr Kenny -resumed klonopin (change to prn) and depakote -psych consult pending today -prn zyprexa for agitation / psychosis # liposarcoma: right testicle s/p orchiectomy # TBI: for which he was reportedly started on depakote and klonopin as above, ? if this was truly bipolar which is now revealing itself -as above # elevated bilirubin: unconjugated, likely [place] # pre renal azotemia: resolved with hydration FULL CODE PCP dvt pplx: lovenox dispo: cont inpt Objective: Vital Signs Temp Pulse Resp BP Pulse Ox 98.2 F 80 18 114/80 96 07/25/18 08:00 07/25/18 08:00 07/25/18 08:00 07/25/18 08:00 07/25/18 08:00 07/23/18 07/24/18 07/25/18 11:59 11:59 11:59 Intake Total 500 Output Total 150 Balance 350 ICD10 Worksheet Patient Problems: Problems Problem Status Onset Absence seizure Acute Psychosis Acute
--- NOTE | 2018-07-25 09:16 | NEUROPROG ---
Addendum entered and electronically signed by Deondre Brown MD 07/25/18 09:18: MRI brain shows no evidence of metastatic lesions, acute infarct, hemorrhage or any other acute findings. Original Note: Assessment: 1. Abnormal behavior, resolving 2. History of traumatic brain injury 3. Abnormal MRI likely query secondary to #2 The patient is markedly improved today as he is back on his psychiatric medications including Depakote. Overall, my clinical impression remains that he has some neuropsychiatric manifestations of TBI and decompensated when going off medications 3 weeks ago. He denies any history of ever having had a seizure. Per review in the EHR , clinical history - I do not see he has had a definite seizure with this healthcare episode. He did mention today that he may have been seeing a psychiatrist before his traumatic brain injury. However, he was not entirely clear. The injury happened 1987 per the patient. Going forward, I agree with psychiatry consultation to make recommendations and clear him to go home on his psychiatric medications and follow-up with Dr. Treviño (PCP) and outpatient psychiatry if indicated. I have also recommended he follow up with Dr. Cyril Kenny at the [facility] for the question of NPH/ hydrocephalus. The MRI findings appear chronic in could be related to his previous TBI. However, further evaluation and diagnostic/treatment is appropriate with a movement subspecialist. He denies any urinary incontinence, short-term memory loss or the typical gait changes consistent with NPH. His gait at this time does NOT show the gait consistent with NPH on exam today. We will sign off and follow up as needed. Please do not hesitate to call for any questions or changes in neurologic status with this pleasant patient. 35 total minutes floor time; over 50% counseling and coordination of care. Subjective: No events or seizures overnight Behavior improved Objective: Vital Signs Temp Pulse Resp BP Pulse Ox 36.8 C 80 18 114/80 96 07/25/18 08:00 07/25/18 08:00 07/25/18 08:00 07/25/18 08:00 07/25/18 08:00 07/24/18 07/25/18 07/26/18 05:59 05:59 05:59 Intake Total 500 Output Total 150 Balance 350 The patient is more lucid and fluent today on exam. ideas and thoughts are more organized. Naming 5/5; repetition 5/5; follow commands 5/5 No aphasia Face is symmetric, extraocular movements are full Muscle tone is normal. No focal weakness On gait exam, his base is normal. There is no magnetic type gait. No parkinsonian features. Stride length is normal Allergies/Adverse Reactions: oxycodone [From Percocet] Allergy (Verified 07/23/18 20:26) Rash
[2018-07-25] MEDS: clonazePAM 1 MG TAB PO SCH (21:11)
[2018-07-26] MEDS: clonazePAM 1 MG TAB PO SCH ×3 (07:29→22:39)
[2018-07-26] MEDS: DIVALPROEX NA 500 MG TAB PO SCH ×2 (07:29→22:39)
--- NOTE | 2018-07-26 14:24 | ASMTCMCOM ---
CM Note CM Note Notes: Pt to get consult with [facility] today, may transfer to in behavioral health. Pt still not at baseline after stopping medications. DC Plan: Inpt Behavioral Health Date Signed: 07/26/2018 02:23 PM Electronically Signed By:Nancy Mccormick RN
--- NOTE | 2018-07-26 16:37 | ASMTLCPROG ---
Notes Note: Notes: [facility] contacted to evaluate pt. This greeting card writer spoke with pt's son Beto, who stated on Monday07/23/18, he went to visit his father. Beto noticed pt was acting very different and was"talking very fast, nonsensical, loopy stuff." Beto stated this was very unlike him. Beto stated, " He was just rambling and incoherent. Then he grabbed my hand really hard and just starred at me and was moving his mouth in a very weird way. He did this for like 10 minutes. I decided to call the ambulance." Beto stated pt's speech was slurred and pt appeared very impaired and was making bizarre statements like, " There's security here, and he has "bonus bucks,everyone gets paid." Beto stated his father has always been "very sharp" and he has never seen his father act this way before. Pt had been taking depakote and kolonopin for 21 years and 3 weeks ago, he stopped taking it. Pt reports he weaned himself off but son believes he stopped abruptly Pt reports the reason he decided to go off his medication was because he wants to be more healthy and doesn't want to have medicines. Pt had a cancer scare in 2017 and since then he has changed his diet to plant based to become more healthy. Part of this new way of living pt states, is also not taking medications. Pt has a TBI from a construction accident in 1987 he sustained during a construction accident where a 2x4 fell from a height and hit him in the head. Pt was later dx with depression and anxiety. Discussed this with pt and he stated, " Yes, I did become depressed after my head injury. 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 Can you imagine? It was very difficult." Pt is on SSI and has been sine his head injury in 1987. Pt is followed by Dr. Catarina Reynaga. Pt denies any hx of psychiatric hospitalizations Pt denied any hx of SI. Beto denies any hx of suicide attempts or SI. No hx of substance abuse.etoh use. Beto stated since pt has gotten back on his medications while in the hospital, he has started to "get back to himself." Pt appeared coherent, maintained good eye contact, answered questions appropriately Pt was calm and cooperative Pt denied any hx of perceptual disturbances or hallucinations. Pt denied SI. Later when this greeting card writer came back to offer resources, pt appeared angry at being in the hospital and having behavioral health having to come see him. Pt told this greeting card writer, " You started this whole thing and you need to fix it." Pt was using profanity and appeared very agitated. Pt's son Beto stated sometimes he can get this way at his baseline. In consultation with on-call psychiatrist, Arnol Alberts MD, pt does not appear to meet 27-65 criteria requiring psychiatric hospitalization as pt does not appear to be an imminent risk of harm to self/others/gravely disabled due to a mental illness condition. Pt's son will encourage pt to follow-up with his outpatient provider. Beto plans on staying with pt this weekend. Beto expressed some concern that pt will not take his medications. This greeting card writer discussed safety plans such as returning to the emergency department if needed. Beto stated his sister lives in [place] and will be checking in on pt also. This greeting card writer also told Beto to encourage pt to continue treatment with is outpatient providers. This greeting card writer consulted with case management to offer additional resources to pt and his son. Date Signed: 07/26/2018 04:36 PM Electronically Signed By:Linda Bettencourt
--- NOTE | 2018-07-26 16:52 | ASMTCMCOM ---
CM Note CM Note Notes: Discussed pt with son and Linda PONCE from [facility] states that psychiatrist won't accept pt to the behavioral unit. Pt is medically stable but still not at baseline. Initially Beto (son) stated that he would stay at pt's place with him until Monday and schedule appt with PCP. Son then came to CM visibley upset stating that pt was saying he was in a space ship and a beautiful blonde that he was going to meet up with. Son doesn't feel safe to take pt home now. CM discussed with MD and will keep pt here. CM went to talk with pt who is in and out of clarity, he is agitated and states he is willing to "kick ass" if he has to. States does not want any more tests or interviews. CM advised him he is in a hospital and that those things may be necessary. Son leaving for the night and will be back tomorrow, advised him he may need to enlist some help other than he and his sister, son agrees. put in another request for [facility] DC Plan: TBD Date Signed: 07/26/2018 04:52 PM Electronically Signed By:Nancy Mccormick RN
--- NOTE | 2018-07-26 20:28 | HOSPPROG ---
Hospitalist Progress Note Assessment/Plan: 63 yo M with hx of liposarcoma and TBI presenting with acute psychosis and altered mentation in setting of discontinuing klonopin and depakote # metabolic encephalopathy: patient presenting with abrupt change in his thinking with episodes of agitation resembling psychosis or joanne as well as periods of blank staring and memory issues which family notes is an abrupt change from his usual thinking. Onset after discontinuing meds. Labs unremarkable, head ct normal. -discussed with Dr. Brown, neurologist, who doubts seizures, but if obvious sz activity occurs, would need to transfer for continuous EEG monitoring - Dr Brown reviewed MRI, suggests outpt FU with Dr Kenny -resumed klonopin (change to prn) and depakote -psych consult pending today -prn zyprexa for agitation / psychosis # liposarcoma: right testicle s/p orchiectomy # TBI: for which he was reportedly started on depakote and klonopin as above, ? if this was truly bipolar which is now revealing itself -as above # elevated bilirubin: unconjugated, likely [place] # pre renal azotemia: resolved with hydration FULL CODE PCP dvt pplx: lovenox dispo: cont inpt Objective: Vital Signs Temp Pulse Resp BP Pulse Ox 97.9 F 94 16 118/78 97 07/26/18 19:57 07/26/18 19:57 07/26/18 19:57 07/26/18 19:57 07/26/18 19:57 07/25/18 07/26/18 07/27/18 11:59 11:59 11:59 Intake Total 500 300 Output Total 150 675 300 Balance 350 -675 0 ICD10 Worksheet Patient Problems: Problems Problem Status Onset Absence seizure Acute Psychosis Acute
[2018-07-27 07:21] VITALS: BP 96/58
[2018-07-27] MEDS: DIVALPROEX NA 500 MG TAB PO SCH (09:12)
[2018-07-27] MEDS: clonazePAM 1 MG TAB PO SCH (09:12)
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
--- NOTE | 2018-07-27 12:50 | ASMTLACE ---
[facility] Length of stay for Answers: 3 days current admission Acuity / Level of Answers: Yes Care: Did the patient have an inpatient admission? Comorbidities - select Answers: Any tumor (including all that apply lymphoma or leukemia) Opioid dependence / Chronic pain Other Notes: TBI; Seizures # of Emergency department Answers: 1-2 visits in the last 6 months Social determinants Answers: Lack of community resources and/or lack of social support (no pcp, lives alone, transportation, cora d) Score: 18 Date Signed: 07/27/2018 12:49 PM Electronically Signed By:Nancy Mccormick RN
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
== END 2018-07-27 13:02 | disposition home or self-care (01) | DRG 72 ==
LOC: EDUNIT# → F3E 22:36 → OBSVTOIN 07-24 11:37
PROVIDERS: ADMIT Internal Medicine; ATTEND Internal Medicine
DX: G93.41 Metabolic encephalopathy (principal); T42.4X6A Underdosing of benzodiazepines, initial encounter; T42.6X6A Underdosing of other antiepileptic and sedative-hypnotic drugs, initial encounter; Z91.128 Patient's intentional underdosing of medication regimen for other reason; E86.9 Volume depletion, unspecified; G40.A09 Absence epileptic syndrome, not intractable, without status epilepticus; R79.89 Other specified abnormal findings of blood chemistry; Z87.820 Personal history of traumatic brain injury; Z85.47 Personal history of malignant neoplasm of testis
CPT/HCPCS: 80305; 82435-PO; 82565-PO; 82947-PO; 84132-PO; 84295-PO; 84484-ER; 84520-PO; 85014-ER; 96374; 97162-GP; A9585; G0480; J2060

== ENCOUNTER 2018-08-16 17:49 | Inpatient (IN) | payer OTHER ==
[2018-08-16 18:25] LABS: PLATELET COUNT 189 10^3/uL (150-400)
[2018-08-16] MEDS ORDERED: LORazepam 1 MG TAB PO ONE (20:16)
--- NOTE | 2018-08-16 20:31 | EDPHY ---
H & P Stated Complaint: M1 HOLD Time Seen by Provider: 08/16/18 17:57 HPI/ROS: Chief complaint: Mental health hold History of present illness: This is a 63-year-old male brought to the emergency department by the police on a mental health hold. Patiently was recently admitted to this hospital for psychosis after tapering off of medications he had been on long-term without his medical library assistant knowledge. Apparently family members and patient's healthcare provider contacted police today. Patient has again become agitated, reportedly hallucinating-talking to himself and acting bizarrely. Family members report he is not taking his medication. He is not eating. He is unable to care for himself. Patient was combative towards police. On my evaluation patient is more calm. He does state that he has been agitated and was being combative to people around him. He does admit to not taking his medications. He denies specific suicidal or homicidal ideation. No other complaints. Review of systems: A 10 point review of systems was obtained and other than described above was negative. - Personal History Current Tetanus/Diphtheria Vaccine: Yes - Medical/Surgical History Hx Asthma: No Hx Chronic Respiratory Disease: No Hx Diabetes: No Hx Cardiac Disease: No Hx Renal Disease: No Hx Cirrhosis: No Hx Alcoholism: No Hx HIV/AIDS: No Hx Splenectomy or Spleen Trauma: No Other PMH: Traumatic brain injury, seizure, memory loss, testicular cancer - Social History Smoking Status: Never smoked - Physical Exam Exam: General Appearance: Alert, nontoxic. Eyes: Pupils equal and round no pallor or injection. ENT, Mouth: Mucous membranes moist. Respiratory: There are no retractions, lungs are clear to auscultation. Cardiovascular: Regular rate and rhythm. Gastrointestinal: Abdomen is soft and non tender, no masses, bowel sounds normal. Neurological: Alert. Skin: Warm and dry, no rashes. Musculoskeletal: Neck is supple non tender. Extremities are symmetrical, full range of motion. Psychiatric: Patient has a flat affect. Constitutional: Initial Vital Signs Temperature (C) 36.8 C 08/16/18 17:53 Heart Rate 113 H 08/16/18 17:53 Respiratory Rate 20 08/16/18 17:53 Blood Pressure 111/82 H 08/16/18 17:53 O2 Sat (%) 93 08/16/18 17:53 O2 Delivery Mode Room Air Allergies/Adverse Reactions: oxycodone [From Percocet] Allergy (Verified 08/16/18 18:21) Rash Home Medications: Medication Instructions Recorded Acetaminophen [Tylenol 325mg (*)] 650 mg PO Q4HRS PRN tab 07/27/18 Divalproex 250 mg PO TID #30 07/27/18 clonazePAM [Clonazepam] 1 mg PO TID #30 tablet 07/27/18 Medical Decision Making ED Course/Re-evaluation: Patient seen under the supervision of my secondary supervising physician Dr. Isidro Solis. Patient is brought in on a mental health hold. Initial medical evaluation is unremarkable and he has undergone a mental health evaluation. I have been in contact with one of his psychiatrist, Dr. Radha Mathew. She has been in contact with the mental health team. They feel that this is more than a mental health issue, possibly some type of encephalopathy. They request admission to the hospitalist service. Dr. Mathew will see patient in the morning. They will likely get Neurology involved. Patient is admitted to Dr. Lizett Duong for further evaluation and care. Differential Diagnosis: Included but not limited to substance abuse, anxiety, depression, bipolar, traumatic brain injury with associated sequelae, encephalopathy - Data Points Laboratory Results: Laboratory Results 08/16/18 18:15 08/16/18 18:15 08/16/18 08/16/18 18:15 18:15 WBC 6.13 10^3/uL 10^3/uL (3.80-9.50) RBC 4.91 10^6/uL 10^6/uL (4.40-6.38) Hgb 16.0 g/dL g/dL (13.7-17.5) Hct 46.5 % % (40.0-51.0) MCV 94.7 fL fL (81.5-99.8) MCH 32.6 pg pg (27.9-34.1) MCHC 34.4 g/dL g/dL (32.4-36.7) RDW 12.3 % % (11.5-15.2) Plt Count 189 10^3/uL 10^3/uL (150-400) MPV 10.4 fL fL (8.7-11.7) Neut % (Auto) 64.9 % % (39.3-74.2) Lymph % (Auto) 22.2 % % (15.0-45.0) [place] % (Auto) 11.3 % % (4.5-13.0) Eos % (Auto) 1.0 % % (0.6-7.6) Baso % (Auto) 0.3 % % (0.3-1.7) Nucleat RBC Rel Count 0.0 % % (0.0-0.2) Absolute Neuts (auto) 3.98 10^3/uL 10^3/uL (1.70-6.50) Absolute Lymphs (auto) 1.36 10^3/uL 10^3/uL (1.00-3.00) Absolute Monos (auto) 0.69 10^3/uL 10^3/uL (0.30-0.80) Absolute Eos (auto) 0.06 10^3/uL 10^3/uL (0.03-0.40) Absolute Basos (auto) 0.02 10^3/uL 10^3/uL (0.02-0.10) Absolute Nucleated RBC 0.00 10^3/uL 10^3/uL (0-0.01) Immature Gran % 0.3 % % (0.0-1.1) Immature Gran # 0.02 10^3/uL 10^3/uL (0.00-0.10) Sodium 137 mEq/L mEq/L (135-145) Potassium 3.7 mEq/L mEq/L (3.5-5.2) Chloride 101 mEq/L mEq/L (97-110) Carbon Dioxide 24 mEq/l mEq/l (22-31) Anion Gap 12 mEq/L mEq/L (6-14) BUN 26 mg/dL H mg/dL (7-23) Creatinine 1.1 mg/dL mg/dL (0.7-1.3) Estimated GFR > 60 Glucose 135 mg/dL H mg/dL (70-100) Calcium 9.5 mg/dL mg/dL (8.5-10.4) Valproic Acid < 10.0 mcg/mL L mcg/mL (50.0-150.0) Ethyl Alcohol < 10 mg/dL mg/dL (0-10) Medications Given: Discontinued Medications Lorazepam (Ativan) 1 mg PO EDNOW ONE Stop: 08/16/18 20:17 Last Admin: 08/16/18 22:51 Dose: Not Given Departure - Departure Disposition: [facility] Acute Clinical Impression: Acute psychosis Condition: Fair
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
--- NOTE | 2018-08-17 00:10 | ASMTTCLDSP ---
[facility] Discharge Disposition Disposition: Answers: Admit Disposition Notes: Notes: It remained unclear as to what may be causing pt's symptoms. It was decided to place pt on a medical floor to rule out a medical rather than a psyychiatric cause. Dr Mathew will consult with pt tomorrow. He has been placed on a medical detainer. Discharge Concerns/Recommendations: Notes: In consultation with [facility] ED PACalvin and on-call psychiatrist,Dr Mathew , both concurred that Pt does not appear to meet 27-65 criteria requiring psychiatric hospitalization as Pt does not appear to be an imminent risk of harm to self or others due to a mental illness condition. The M1 hold was lifted by Dr Messer 08/17/2018 at :02. Pt was placed on a medical detainer and transferred to a medical floor. Dr Mathew will consult with pt tomorrow. Was patient given the Answers: Not applicable Inpatient Behavioral Health Prohibited Belongings List while in the ED? Psychiatrist vacating ED physician, Dr Messer Hold: Date and time M1 hold 08/17/2018 12:02 AM vacated (time format is hh:mm): Type of Hold: Answers: M1/72-hour Hold Hold initiated by: Answers: Police Date Signed: 08/17/2018 12:10 AM Electronically Signed By:Shalini Yu
[2018-08-17] MEDS ORDERED: LORazepam 2 MG/ML INJ IVP PRN (00:58)
[2018-08-17] MEDS ORDERED: ACETAMINOPHEN 325 MG TAB PO PRN (00:58)
[2018-08-17] MEDS ORDERED: ONDANSETRON 4 MG/2 ML VIAL IVP PRN (00:58)
[2018-08-17] MEDS ORDERED: ONDANSETRON DISINTEGRATING 4 MG TAB PO PRN (00:58)
[2018-08-17] MEDS ORDERED: DIVALPROEX NA 250 MG TAB PO SCH (01:30)
[2018-08-17] MEDS ORDERED: LORazepam 1 MG TAB ONE (02:14)
[2018-08-17] MEDS ORDERED: LORazepam 0.5 MG TAB PO PRN (02:24)
[2018-08-17] MEDS: clonazePAM 1 MG TAB PO SCH ×4 (02:28→21:41)
[2018-08-17 05:13] LABS: PLATELET COUNT 145 10^3/uL (150-400)
--- NOTE | 2018-08-17 09:19 | PDGENHP ---
History and Physical - Chief Complaint hallucinations, agitation - History of Present Illness Source - Patient provides limited history. He either states he can't recall or provides history that is of questionable accuracy. EMR reviewed and case discussed with ED provider. 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 Patient has not been seen in a few days since discharge. He returns today initially combative, agitated and with auditory hallucinations. However shortly after arrival to the ED patient has been resting quietly in his room and has been very cooperative and calm with staff. Patient was admitted on 07/24/18 for similarly odd behavior/confusion. He previously had stopped taking his home medications which he had been on for > 20 years because he reported that he wanted to "go organic" per records. Patient was evaluated at that time by psychiatry and neurology. It was felt patient encephalopathy could have been a combination of medication withdrawal as well as patient baseline neuropsychiatric decompensation related to his history of TBI while off his medications. Patient was restarted on his medications and before discharge went back home. Since that time patient reports he stopped his medications again. HE cannot tell me when he stopped. He lives alone and does not have any assistance with managing his medications. When asked he states "I do that.... I have medication waiting at the pharmacy but I haven't gotten them yet." When asked if he would be willing to take his medications he states "I don't have a choice." when noted at this time he does have a choice he reports "I'll take it if it gets me out of here." Patient denies any headache, fevers/chills, nausea/vomiting/diarrhea/abdominal pain. He reports he feels fine. History Information - Allergies/Home Medication List Allergies/Adverse Reactions: oxycodone [From Percocet] Allergy (Verified 08/16/18 18:21) Rash Home Medications: Divalproex Sodium 250 mg PO TID 08/17/18 [Last Taken Unknown] I have personally reviewed and updated: family history, medical history, social history, surgical history - Past Medical History cancer (liposarcoma of the testicle) Additional medical history: TBI - Surgical History Reports: cancer surgery (orchiectomy) - Family History Additional family history: father with stroke. mother with dementia - Social History Smoking Status: Never smoked Alcohol Use: None Drug Use: None Review of Systems Review of Systems: ROS: 10pt was reviewed & negative except for what was stated in HPI & below Physical Exam Physical Exam: Selected Entries 08/16/18 17:53 Blood Pressure Automatic Method Heart Rate 113 H Respiratory 20 Rate O2 Sat (%) 93 Temperature (C) 36.8 C Blood Pressure 111/82 H Mean Arterial 91 Pressure (MAP) O2 Delivery Room Air Mode Temperature Oral Source Temp Pulse Resp BP Pulse Ox 36.9 C 84 14 102/71 94 08/17/18 07:46 08/17/18 07:46 08/17/18 07:46 08/17/18 07:46 08/17/18 07:46 Constitutional: no apparent distress, other (NAD. Patient is laying quietly on gurney. He appears older than stated age, thin, disheveled and unwashed. ) Eyes: PERRL (decreased reactivity to light bilaterally but symmetric. ), anicteric sclera, EOMI, scleral injection Ears, Nose, Mouth, Throat: poor dentition, dry mucous membranes, other (no nasal discharge. ) Cardiovascular: regular rate and rhythym, no murmur, rub, or gallop, pulses symmetric bilaterally, No edema Peripheral Pulses: 2+: dorsalis-pedis (R), dorsalis-pedis (L) Respiratory: no respiratory distress, no rales or rhonchi, clear to auscultation , No inspiratory crackles Gastrointestinal: normoactive bowel sounds Lab Data & Imaging Review 08/17/18 04:46 08/17/18 04:46 WBC 6.10 10^3/uL (3.80-9.50) 08/17/18 04:46 RBC 4.22 10^6/uL (4.40-6.38) L 08/17/18 04:46 Hgb 13.6 g/dL (13.7-17.5) L 08/17/18 04:46 Hct 40.1 % (40.0-51.0) 08/17/18 04:46 MCV 95.0 fL (81.5-99.8) 08/17/18 04:46 MCH 32.2 pg (27.9-34.1) 08/17/18 04:46 MCHC 33.9 g/dL (32.4-36.7) 08/17/18 04:46 RDW 12.2 % (11.5-15.2) 08/17/18 04:46 Plt Count 145 10^3/uL (150-400) L 08/17/18 04:46 MPV 10.3 fL (8.7-11.7) 08/17/18 04:46 Neut % (Auto) 55.2 % (39.3-74.2) 08/17/18 04:46 Lymph % (Auto) 30.2 % (15.0-45.0) 08/17/18 04:46 [place] % (Auto) 11.8 % (4.5-13.0) 08/17/18 04:46 Eos % (Auto) 2.0 % (0.6-7.6) 08/17/18 04:46 Baso % (Auto) 0.5 % (0.3-1.7) 08/17/18 04:46 Nucleat RBC Rel Count 0.0 % (0.0-0.2) 08/17/18 04:46 Absolute Neuts (auto) 3.37 10^3/uL (1.70-6.50) 08/17/18 04:46 Absolute Lymphs (auto) 1.84 10^3/uL (1.00-3.00) 08/17/18 04:46 Absolute Monos (auto) 0.72 10^3/uL (0.30-0.80) 08/17/18 04:46 Absolute Eos (auto) 0.12 10^3/uL (0.03-0.40) 08/17/18 04:46 Absolute Basos (auto) 0.03 10^3/uL (0.02-0.10) 08/17/18 04:46 Absolute Nucleated RBC 0.00 10^3/uL (0-0.01) 08/17/18 04:46 Immature Gran % 0.3 % (0.0-1.1) 08/17/18 04:46 Immature Gran # 0.02 10^3/uL (0.00-0.10) 08/17/18 04:46 Sodium 139 mEq/L (135-145) 08/17/18 04:46 Potassium 3.8 mEq/L (3.5-5.2) 08/17/18 04:46 Chloride 103 mEq/L (97-110) 08/17/18 04:46 Carbon Dioxide 28 mEq/l (22-31) 08/17/18 04:46 Anion Gap 8 mEq/L (6-14) 08/17/18 04:46 BUN 22 mg/dL (7-23) 08/17/18 04:46 Creatinine 0.9 mg/dL (0.7-1.3) 08/17/18 04:46 Estimated GFR > 60 08/17/18 04:46 Glucose 91 mg/dL (70-100) 08/17/18 04:46 Calcium 8.8 mg/dL (8.5-10.4) 08/17/18 04:46 Valproic Acid < 10.0 mcg/mL (50.0-150.0) L 08/16/18 18:15 Ethyl Alcohol < 10 mg/dL (0-10) 08/16/18 18:15 Assessment & Plan Assessment: This is a 63 yo gentleman with pmhx significant for 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 metabolic encephalopathy - patient with apparently another acute decompensation similar to last hospitalization 07/24/18 whether this was 2/2 withdrawal vs acute neuropsych decompensation related to TBI. Patient again has stopped taking his home medications including depakote and klonipin. He cannot tell me how long he has gone without his medications. He cannot tell me why he stopped them. Patient had imaging of the brain last hospital stay and exam otherwise nonfocal. will defer additional imaging at this time. Patient was placed on an M1 hold initially that was downgraded to medical hold as patient was perfectly cooperative shortly after arrival to ED. Labs WNL. Resume patient depakote. Dr. Mathew with psychiatry was consulted from the ED and will plan to see the patient this morning. She recommends additional consult for neurology as well. Patient noted he would take the medications if it would hasten his potential discharge. FEN - diet as tolerated. electrolytes adequate. PPX - SCDs. lovenox if patient should stay additional day. COR - FULL at this time. Dispo - Patient admitted to observation status on [facility] floor under medical detainer pending additional evaluation by psychiatry and neurology, however he has made no attempts to leave AMA and has been very cooperative. He remains a little confused but not agitated.
[2018-08-17] MEDS ORDERED: LIDOCAINE 4%/MENTHOL 1% PATCH TD PRN (09:31)
[2018-08-17] MEDS: DIVALPROEX NA 250 MG TAB PO SCH ×3 (11:17→21:41)
--- NOTE | 2018-08-17 11:17 | ASMTCMCOM ---
CM Note CM Note Notes: Pt is a 63 y/o man admitted for psychosis. Pt was seen by [facility] and cleared of his M1 hold. Dr. Mathew will be seeing pt today. It appears that pt may have stopped taking his psych meds. It is uncertain if pt will have any d/c needs at this time. Pt has supportive kids and an ex . CM to follow. Plan: TBD Date Signed: 08/17/2018 11:16 AM Electronically Signed By:ANDRES Cobos
[2018-08-17] MEDS: ENOXAPARIN 40 MG/0.4 ML SYR SC SCH (11:18)
--- NOTE | 2018-08-17 14:57 | HOSPPROG ---
Hospitalist Progress Note Assessment/Plan: DIAGNOSES: * Ongoing symptoms of encephalopathy/psychosis including visual hallucinations, manic type spending spree, grandiose delusions (patient has reportedly spent half a million dollars processing an aunt collection of items over the past month which he cannot pay for), etc * Failure to thrive, patient clearly not taking care of his health in any safe way at home * MRI brain showing severe enlargement of ventricles with central atrophy but without peripheral brain atrophy raising question of normal-pressure hydrocephalus * poor insight into his medical or neuropsych issues * Pre renal azotemia at the time of this admission is resolved * ? History of seizure disorder on chronic Depakote * History of anxiety disorder for which he has long taken benzodiazepine * History of remote traumatic brain injury * History of testicular liposarcoma treated surgically, has declined medical therapy but so far no evidence of recurrence (has had biopsies for subtle questions of metastatic disease, all negative) I have found to areas of new information at this time that may inform us regarding past underlying and new developing symptoms for this patient 1) his Depakote and alprazolam or initially prescribed by Dr. Malone psychiatrist at [facility] in the late . Dr. Treviño the primary care physician took over prescription if these medicines around 2006, but the patient did not really disclose to doctor Treviño what was being treated with these medicines at the time. The only diagnosis Dr Treviño has listed in his record is "mood lability", so this is the diagnosis that Dr. Treviño has prescribed these medicines for.. Over the years the patient has told Dr Treviño that the medicine seem to be working fine and he would like to just keep taking the same doses which is what has been done. As is explained in this admissions H&P and the July history and physical the patient on his own has decided to stop taking these medicines recently hoping to instead use a non pharmaceutical option. At this time the patient tells me that Dr Treviño told him to start tapering off the alprazolam, though Dr. Treviño apparently did not tell him to do this. The patient tells me that Dr. Treviño is lying. Thus, while the patient and family have presented that there never really was a significant mental health or psychiatric disorder, I strongly suspect that there actually was a mental health disorder for which these medicines were prescribed. I will review with Dr. Mathew and see if there is a way we can get records from the [facility] to review, unclear if records from the [id number]'s would still be available if the patient has not been seen there since 2006. 2) Concern for Normo-pressure Hydrocephalus: the patient does indeed endorse at this point having fairly recent onset of some balance problems for which he thinks he should use a walker, though it is hard to tell exactly when this started. At least months ago. The patient's family has mentioned that the patient has been urinating in his bed and when I carefully navigate the conversation with the patient he does admit to having onset of urinary incontinence though again very difficult to discern the timing. When I review his MRI and CT scan from last month, the images show me massive ventriculomegaly with not very impressive cortical atrophy. I am able to find that he had an MRI in 2017 with a report that apparently showed some enlargement of ventricles but does not sound like as severe as current. My suspicion for NPH is fairly high at this time PLANS: * I have discussed patient's case in detail today with Dr. Mathew * Nutritional supplements * Avoid medications that would aggravate encephalopathy * For the moment continue his usual prescribed Depakote and clonazepam * I think he should be referred to a specialist in the area of normal pressure hydrocephalus to see if he has this diagnosis and whether treatment should be considered * He will need ongoing outpatient psychiatric care to manage medications * Hopefully we can get records from [facility] to better understand his underlying mental health issues * In the outpatient setting it may be very useful have Psychiatry and Neurology coordinating to manage his issues * At this time the patient is not capable of taking adequate care of himself at home. At the moment he says he is agreeable to taking his alprazolam and Depakote, however this is what he told us with the last time was in the hospital , and Dr. Mathew at the moment is not confident that he would continue to take his medicines. With his actions such as stopping medicines leaving him at risk for seizure and spending over half million dollars buying purchases from the Internet in TV etc it does not seem prudent to have him in an outpatient setting at this moment. I do not think that he has appropriate capacity to manage financial or medical affairs at this time. Hopefully with ongoing medical treatment he will get this back, however some neuropsychiatric testing may be necessary to determine what degree of dementia he has if any but I suspect he does SUBJECTIVE: Patient says he feels physically comfortable at this time and relaxed He is enjoying his stay watching TV and eating snacks OBJECTIVE Vitals reviewed: All stable without fever Conventions Reservationist, my review: Exam: alert oriented relaxed, engages normally in conversation No tremor or movement disorders apparent Speech and language function normal Memory does not seem at least on the surface terribly impaired but I did not at this time engage in a very focused assessment of memory No obvious cranial nerve abnormalities Affect is appropriate for his situation skin warm dry color ok resps not labored lungs clear BSs heart regular abd soft nondistended nontender, bowel sounds present limbs warm, no edema iv site ok Lab data: BUN improved to normal, stable electrolytes and creatinine With CBC borderline platelets * Objective: Vital Signs Temp Pulse Resp BP Pulse Ox 36.6 C 80 16 105/72 93 08/17/18 11:26 08/17/18 11:26 08/17/18 11:26 08/17/18 11:26 08/17/18 11:26 Laboratory Results 08/17/18 04:46 08/17/18 04:46 08/16/18 08/17/18 08/18/18 06:59 06:59 06:59 Intake Total 400 Balance 400 - Time Spent With Patient Time Spent with Patient: greater than 35 minutes Time Spent with Patient: Greater than 35 minutes spent on this patients care, greater than 50% of time spent counseling, educating, and coordinating care regarding the above mentioned plan. ICD10 Worksheet Patient Problems: Problems Problem Status Onset Acute psychosis Acute Absence seizure Acute Psychosis Acute
[2018-08-17] MEDS: PATCH REMOVAL 1 EA PATCH TD SCH (22:21)
[2018-08-17] MEDS ORDERED: MELATONIN 3 MG TAB PO PRN (22:39)
[2018-08-18] MEDS: DIVALPROEX NA 250 MG TAB PO SCH ×3 (10:11→21:57)
[2018-08-18] MEDS: clonazePAM 1 MG TAB PO SCH ×3 (10:11→21:57)
[2018-08-18] MEDS: ENOXAPARIN 40 MG/0.4 ML SYR SC SCH (10:12)
--- NOTE | 2018-08-18 12:14 | PDCONSULT ---
[employer]borne S[employer] Specialist Note: PSYCHIATRY CONSULTATION Pt seen and evaluated 08/17/18. spoke at length with Dr. Schaefer. Also met with daughter yesterday- (her written concerns are in chart on unit) Complete note to follow. Rec -Continue with 20yr home dose of Depakote 250mg TID and Klonopin 1mg TID ( inadvertently incorrectly noted as aplrazolam in Dr. Schaefer's note). Anticipate steady state to be reached over next 4 days. Consider increase Depakote to more therapeutic range if level low. If necessary, would use only low dose atypical neuroleptic as prn for psychosis, such as Zyprexa 2.5 tid prn. -Speech therapy for formal cognitive assessment would be beneficial, including for current baseline. -Dr. Schaefer discussed consultation with neurosurgery. Consider txf to [facility] if this is appropriate for higher level of care and more acute management due to this patients complexity with pt significant concerns for NPH and worsening functioning, concern for progressive decline in cognitive and physical functioning, presently felt able to manage independently, with concerns for neuropsychiatric manifestations of NPH superimposed on possible protracted delirium related to acute BZD withdrawal after 20yr, with baseline TBI and exacerbation of possible underlying psychiatric illness. However, history consistently notes that patient has never been diagnosed with a mental illness other than anxiety d/o and that he was on current psychiatric medications for possible seizures and anxiety d/o, also possibly mood lability, related to TBI. -Not felt at this time to have decisional capacity as with no insight and significantly impaired judgment. Current symptoms not felt clearly due to primary psychiatric disorder at this time. Prominent visual hallucinations, and apparent waking/waning of symptoms, including worsening at night as noted by RN (responding to unseen others last night) ?, concerning for encephalopathy related to NPH and BZD w/d. -due to cognitive concerns, would ensure reversible causes are treated, ie/ check Vit B12, vit D, TSH. Ck UA to r/o UTI and ck UDS since was not provided in ED. -Ensure adequate hydration/nutrition, family notes pt with weight loss over past year and declining self care, not eating well. may also be b/c cognitively less organized and able to prepare own meals etc. Note pt with hx of CA. -Consider oncology input if indicated. Pt dxd with liposarcoma 12/2016 s/p R radical orchiectomy, with concerns for bone mets 04/2017 but reported negative bone bx. Dtr reports pt was supposed to get chemo but "cured himself" as he believed, and over past year has gone vegan/vegetarian, and more "natural", contributing to his desire to d/c traditional medications. Could also consider check paraneoplastic panel. -Will attempt to contact Dr. Malone at [facility] for collateral. Pt signed OBI. -Will continue to follow. Please call with any questions.
--- NOTE | 2018-08-18 15:45 | HOSPPROG ---
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, liposarcoma of testicle here w encephalopathy, joanne encephalopathy: alert, logical but different from how his children say he's been slightly tachy but not clearly in benzo withdrawal medical workup negative joanne: he has spent $500 K on [employer] in last few months, money he doesnt have he is tangential and paranoid children unaware of underlying bipolar but he has been on depakote/klonopin for > 20 years, which is most of their lives now back on depakote and klonopin, which he is taking per nursing this is likely inmasking of long dormant (because of medication) bipolar trigger for joanne, med dc unclear ?NPH: I spoke w neurology who feels this is unlikely I concur definitive workup done as outpt, reasonable to do proph:L add lmwh dispo: chnage to inpt Subjective: case d/w dr fu. 35 minutes spent w family Objective: Vital Signs Temp Pulse Resp BP Pulse Ox 36.6 C 75 14 115/75 95 08/18/18 07:50 08/18/18 07:50 08/18/18 07:50 08/18/18 07:50 08/18/18 07:50 Laboratory Results 08/17/18 04:46 08/17/18 04:46 08/17/18 08/18/18 08/19/18 05:59 05:59 05:59 Intake Total 400 500 Balance 400 500 - Physical Exam Constitutional: no apparent distress, appears nourished Eyes: PERRL, anicteric sclera Ears, Nose, Mouth, Throat: moist mucous membranes, hearing normal Cardiovascular: regular rate and rhythym, no murmur, rub, or gallop Respiratory: no respiratory distress, no rales or rhonchi Gastrointestinal: normoactive bowel sounds, soft, non-tender abdomen Genitourinary: no bladder fullness, No taveras in urethra Skin: warm, normal color Musculoskeletal: full muscle strength, no muscle tenderness Neurologic: AAOx3, other Psychiatric: other (confrontational, logical ) ICD10 Worksheet Patient Problems: Problems Problem Status Onset Acute psychosis Acute Absence seizure Acute Psychosis Acute
[2018-08-18] MEDS: PATCH REMOVAL 1 EA PATCH TD SCH (21:58)
[2018-08-19] MEDS: ENOXAPARIN 40 MG/0.4 ML SYR SC SCH (08:55)
[2018-08-19] MEDS: clonazePAM 1 MG TAB PO SCH ×3 (08:55→21:55)
[2018-08-19] MEDS: DIVALPROEX NA 250 MG TAB PO SCH ×3 (08:55→21:55)
--- NOTE | 2018-08-19 13:03 | HOSPPROG ---
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, liposarcoma of testicle here w encephalopathy, joanne encephalopathy: alert, logical but different from how his children say he's been slightly tachy but not clearly in benzo withdrawal medical workup negative 08/19: unchanged i do not think he is still encephalopathic joanne: he has spent $500 K on [employer] in last few months, money he doesnt have he is tangential and paranoid children unaware of underlying bipolar but he has been on depakote/klonopin for > 20 years, which is most of their lives now back on depakote and klonopin, which he is taking per nursing this is likely unmasking of long dormant (because of medication) bipolar trigger for joanne, med dc unclear ?NPH: neurology does not believe this is NPH based on normal gait- patient actually jogged in the [place] this afternoon I agree and would not delay psychiatric treatment for this eval proph:L add lmwh dispo: chnage to inpt Subjective: "i'm on a really important call right now, would you come back". case d/w dr fu, dr grant Objective: Vital Signs Temp Pulse Resp BP Pulse Ox 36.2 C 83 16 118/70 99 08/19/18 07:28 08/19/18 07:28 08/19/18 07:28 08/19/18 07:28 08/19/18 07:28 Laboratory Results 08/17/18 04:46 08/17/18 04:46 08/18/18 08/19/18 08/20/18 05:59 05:59 05:59 Intake Total 500 1000 Balance 500 1000 - Physical Exam Constitutional: no apparent distress, appears nourished Eyes: PERRL, anicteric sclera Ears, Nose, Mouth, Throat: moist mucous membranes, hearing normal Cardiovascular: regular rate and rhythym, no murmur, rub, or gallop Respiratory: no respiratory distress, no rales or rhonchi Gastrointestinal: normoactive bowel sounds, soft, non-tender abdomen Genitourinary: no bladder fullness, No taveras in urethra Skin: warm, normal color Musculoskeletal: full muscle strength Neurologic: AAOx3 ICD10 Worksheet Patient Problems: Problems Problem Status Onset Acute psychosis Acute Absence seizure Acute Psychosis Acute
--- NOTE | 2018-08-19 14:20 | GCON ---
[f rep st] CONSULTATION NEUROLOGY CONSULTATION. DATE OF CONSULTATION: 08/19/2018 REFERRING PHYSICIAN: Dameon Barboza MD CHIEF COMPLAINT: History of traumatic brain injury. HISTORY OF PRESENT ILLNESS: The patient is a very pleasant 63-year-old gentleman who I saw for his last hospitalization for the same symptoms in July of 2018. Please see my initial consultation and followup notes for details. In summary, my overall impression is that the patient developed psychiatric symptoms after a traumatic brain injury that occurred over 20 or 30 years ago. In addition, he may have been seeing a psychiatrist for his traumatic brain injury. Therefore, it could be simply an exacerbation of a psychiatric disease that was underlying after the brain injury. According to the patient, the TBI occurred in 1987. CT is consistent with posttraumatic changes with some ventriculomegaly that is asymmetric. Most importantly, the patient does not have the classic triad of normal pressure hydrocephalus with gait changes, urinary incontinence, or dementia. Indeed, please see below in terms of his neurologic exam, in regard to his gait. The patient returned to the ED on August 16, 2018, because he was put on a mental health hold by law enforcement. He, apparently, did not take the Depakote he was recommended and was disorganized, manic, and acting bizarrely. No seizures or other neurologic focal symptoms. REVIEW OF SYSTEMS: A 10-point review of systems was done only pertinent to the HPI. PHYSICAL EXAM: VITAL SIGNS: Blood pressure is 118/70, temperature 36.2, heart rate 70s. GENERAL: He is very pleasant, no acute distress. When I speak with him, his thoughts are organized and he is attentive. He has no aphasia. CRANIAL NERVE EXAM: Normal 2 through 7 and 12. MOTOR EXAM: He has no focal weakness. He has normal muscle tone and reflexes throughout. SENSORY EXAM: Normal to light touch throughout. Coordination is normal in upper and lower extremities. GAIT EXAM: Patient has a steady, fairly normal gait. He has normal stride, length, and velocity. There is no ataxia. He does not have features of NPH in terms of a magnetic wide-based gait on exam. Indeed, he is able to jog through the hallways steadily upon my request. IMPRESSION AND PLAN: 1. History of traumatic brain injury. 2. Psychiatric disease. Overall, my impression is this patient has psychiatric problems in the setting of a previous traumatic brain injury. The psychiatric problems may have pre- existed before the traumatic brain injury per the patient. The patient had been on benzodiazepine and Depakote for 20 or 30 years and self discontinued, which led to his July admission. He was instructed to take the medication after discharge, but did not and therefore, he remains decompensated from a psychiatric standpoint. He does not have clinical exam or symptomatic features of normal-pressure hydrocephalus. His neuroimaging is consistent with his previous traumatic brain injury. I recommend psychiatric stabilization, which may require inpatient psychiatric care. I will defer to my colleagues in Psychiatry regarding the specifics. Once he is stabilized from a psychiatric standpoint, he certainly can follow up with Dr. Cyril Kenny of [facility] for repeat examination by a movement subspecialist before considering any further workup for normal pressure hydrocephalus. No further recommendations. We will continue to follow as needed. Please do not hesitate to call the neurology service if there are any changes in his neurologic status or general questions. We appreciate the referral. Seventy total minutes floor time today; over 50% in direct counseling and coordination of care. /[id number]/MODL MTDD
--- NOTE | 2018-08-19 15:55 | PDMN ---
Medical Necessity Medical necessity: [facility] General Admission: 63 yo presents w/ metabolic encephalopathy, unclear etiology - med w/d vs. acute neuropsych decomp r/t hx TBI. Initially OBS for workup but pt's encephalopathy unchaged w/ manic behaviors w/ paranoia, psych and neuro evals ordered. Pt cont w/ visual hallucinations and grandiose delusions. Per MD pt not capable of taking adequate care of himself at home w/ no appropriate capacity to manage financial or medical affairs. Pt is on 72H hold for medical incapacity. Change to IP status 08/18/18@1549 per order.
[2018-08-19] MEDS: PATCH REMOVAL 1 EA PATCH TD SCH (21:55)
[2018-08-20] MEDS: ENOXAPARIN 40 MG/0.4 ML SYR SC SCH (07:31)
[2018-08-20] MEDS: clonazePAM 1 MG TAB PO SCH ×3 (07:32→21:42)
[2018-08-20] MEDS: DIVALPROEX NA 250 MG TAB PO SCH ×3 (07:32→21:42)
--- NOTE | 2018-08-20 15:23 | HOSPPROG ---
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, liposarcoma of testicle here w encephalopathy, joanne encephalopathy: alert, logical but different from how his children say he's been slightly tachy but not clearly in benzo withdrawal medical workup negative 08/19: unchanged i do not think he is still encephalopathic 08/20: alert but still tangential joanne: he has spent $500 K on [employer] in last few months, money he doesnt have he is tangential and paranoid children unaware of underlying bipolar but he has been on depakote/klonopin for > 20 years, which is most of their lives now back on depakote and klonopin, which he is taking per nursing this is likely unmasking of long dormant (because of medication) bipolar trigger for joanne, med dc unclear ?NPH: neurology does not believe this is NPH based on normal gait- patient actually jogged in the jordan this afternoon I agree and would not delay psychiatric treatment for this eval proph:L add lmwh dispo: change to inpt Subjective: case d/w dr grant Objective: Vital Signs Temp Pulse Resp BP Pulse Ox 36.6 C 90 18 111/80 98 08/20/18 08:00 08/20/18 08:00 08/20/18 08:00 08/20/18 08:00 08/20/18 08:00 08/19/18 08/20/18 08/21/18 05:59 05:59 05:59 Intake Total 1000 Balance 1000 - Physical Exam Constitutional: no apparent distress, appears nourished Eyes: PERRL, anicteric sclera Ears, Nose, Mouth, Throat: moist mucous membranes, hearing normal Cardiovascular: regular rate and rhythym, no murmur, rub, or gallop Respiratory: no respiratory distress, no rales or rhonchi Gastrointestinal: normoactive bowel sounds, soft, non-tender abdomen Genitourinary: no bladder fullness, No taveras in urethra Skin: warm, normal color Musculoskeletal: full muscle strength Neurologic: AAOx3 ICD10 Worksheet Patient Problems: Problems Problem Status Onset Acute psychosis Acute Absence seizure Acute Psychosis Acute
--- NOTE | 2018-08-20 16:39 | ASMTCMCOM ---
CM Note CM Note Notes: Spoke with pt, hospitalist and pt's son Beto ([phone]) who has asked to be kept in the loop as soon as any new developments arise. Psychiatry consult did not recommend inpatient behavioral health as pt is largely appropriate, however Mathew ordered HOSPICE AIDE cog eval - still pending - as pt may benefit from short term rehab in order to stabilze medications and regain cognitive function. Pt is agreeable and is also interested in care home assisted living solution. Referrals sent to several SNFs in the area and to several in [place] near son's home. [facility] contacted to screen pt for Medicaid and LTC medicaid at son's request. CM also provided son contact information for [facility] to begin the process of researching medical power of consumer attorney and financial power of consumer attorney as pt is also agreeable to this. CM also gave son contact information for [facility] and [facility] which are both income-based. D/C Plan: SNF short term rehab Date Signed: 08/20/2018 04:38 PM Electronically Signed By:Norma Thomas
[2018-08-20] MEDS: PATCH REMOVAL 1 EA PATCH TD SCH (20:46)
[2018-08-21] MEDS: clonazePAM 1 MG TAB PO SCH ×3 (07:29→22:27)
[2018-08-21] MEDS: DIVALPROEX NA 250 MG TAB PO SCH ×3 (07:29→22:27)
[2018-08-21] MEDS: ENOXAPARIN 40 MG/0.4 ML SYR SC SCH (07:29)
--- NOTE | 2018-08-21 10:05 | SOAPPROG ---
SOAP Progress Note Assessment/Plan: Assessment: 63yo with past hx notable for: -TBI 1987 for which he has been on SSI/disability. reports remote hx of extensive neuropsych testing following TBI. -Hx of psychiatric treatment 1996~2006 for anxiety/depr (unclear if due to TBI) but has been stable on Depakote 250mg TID and Klonopin 1mg TID since then (with no formally diagnosed hx of bipolar mood disorder) and no psych tx since. I spoke with outpt psychiatrist Dr. Malone 08/20/18 who recalled working with this pt- reported no formal dx of BMD, "never classically manic", but with TBI hx, and had treated him for anxiety with meds that he found to be helpful clinically ; pt did have depression s/p TBI and again after father ~1996, occasional irritability, and struggles with not being able to be primary provider for family altho not clearly strongly motivated to seek out employment. -outpt meds continued by PCP since ~2006, with no further outpt psychiatric treatment -Dx of liposarcoma s/p R orchiectomy 12/2016, with r/o bone mets (neg w/u) early 2017, with subsequent lifestyle changes including vegetarian/vegan, "natural" supplements, leading also to desire to stop all Rx medications 07/2018 -fairly abrupt discontinuation of 20+yr BZD/VPA 07/2018 leading to [facility] admission 07/24/18 with confusion/odd behavior and felt to be encephalopathic -family noted pt bed "ruined" with urine, insomnia, hallucinations, delusions, signif purchases online -CT/Brain MRI noted enlarged 3rd and bilat ventricles ultimately felt due to chronic posttraumatic changes. considered NPH, no evid for abn gait or incontinence and cognition improved, john following restart BZD/VPA . Neuro rec f/u outpt with movement d/o specialists to follow. -Readmitted to [facility] 08/17/18 with acute decompensation similar to previously following d/c of his medications again. initially admitted on M-1, changed to medical hold On interview, pt reports being in hospital "because I was trying to get my daughter to do something, and started to raise my voice, it was the wrong thing to do, I escalated, she got scared. I can get ticked off but haven't in a long time...the extract puller came, I didn't respect their authority, I resisted..." States "yes, I have to take my pills, but my senior care goal is to get off big pharma and use natural botannicals" Regarding $500K purchases in short period of time, matter of factly states, "I told my daughter how to deal with that...just send it back." States he made such purchases b/c at the time he was told by God that he had money. States he was unsteady at home b/c he was taking mineral supplements. urine incontinence b/c couldn't get to [facility] on time, not sure if had seizure. admits insomnia after d/c of meds. does not recall or acknowledge experiencing AH or VH , although dtr reports pt was experiencing AH and prominent VH, seeing people not there, communicating/interacting with them, with periods of confusion, illogical thoughts, agitation, irritability. MSE: 63yo CM with curly hair, moustache, unshaven, calm, cooperative, good eye contact. casually dressed. nml psychomotor activity. no abn invol mvmts. nml speech rate/vol. appropriately excused self to use restroom during interview. mood "confused" although overall feels better than on admission b/c has been "eating, taking naps" and feels "fog lifted". affect notable for restricted range. became tearful when talking about father's 1997 from [place]. thought processes circumferential, not tangential, at times seemed confabulatory. ie/ when asked about urine incontinence in bed at home, "it felt good to relieve myself like that actually, I did that as a kid, my ex- also had bladder problems, what's one more stain..." Did not appear responding to any internal stimuli. Denied current/recent AH/VH although pt admits he has sometimes talked to himself in the past, "I googled, it, it's normal. sometimes I talk to my mother, I believe in the afterlife". Expresses lack of insight into delusions he had experienced prior to admission, noting he had been promised a divinely paired relationship, but has received no further communication regarding this, and isn't sure what to think about this relationship now. (JEWELRY FACER had experienced VH of female he felt was to be divinely paired with him). judgment seems concrete. cognition intact. A&Ox3. MOCA . notable for mild dysexecutive functioning. also 0/5 on recall even with recognition cues. Per RN notes, on 08/17 pt was noted to be responding to unseen others, talking to self in room. No such responding to int stim noted since. had restarted meds since. reportedly sleeping well. IMP: acute encephalopathy, resolving, due to abrupt medication withdrawal neurocognitive d/o, unspecified traumatic brain injury, 1987, w/chronic MRI changes, hydrocephalus testicular liposarcoma, resected 2016 REC: -Pt presently does NOT meet M-1 criteria as he denies any thoughts/plan/intent to harm self/others and he is not felt to be gravely disabled due to primary mental illness. Pt reports he will continue on his current medications b/c it scared him what happened recently after discontinuing them again. Consistently states he does NOT want inpatient psychiatric treatment, "not unless its absolutely necessary." No hx of inpt psych. Presently no indication for involuntary inpt psychiatric treatment. -Although prior to admission sxs concerning for manic sxs/psychosis, his abrupt d/c of longstanding Bev-inhibitory medications (both VPA and BZD) after 20+ years is most likely etiology for his protracted delirium like sxs, with delirium-tremens like sxs, as pt was with prominent visual hallucinations and urinary incontinence (dtr notes bed ruined), AMS/confusion and what seems like confabulation, which would not be consistent with manic episode due to BMD. Pt is also predisposed to delirium with his baseline TBI and MRI brain changes noted. Although it is still a consideration that he may have underlying Bipolar d/o, related or not to his TBI, however pt's family consistently reports no such history of such diagnosis, and outpt psychiatrist also denied, and pt no hx inpt psych tx or any psych f/u >10yr. Excess spending could also be related to impulsivity, with executive dysfunction , impaired insight/jdgmt and in response to his hallucinations/delusions prior to admission. Dtr reports he has hx of ordering items online, sometimes never opening boxes received, but never to this excess. -Continue VPA and Klonopin as previously. Check VPA level. No antipsychotic clearly indicated at this time, and pt declines offer of any additional medications. Pt maintains still hoping to be off meds eventually but agrees to continue now and after d/c. When pt reminded this is what he said after last admission, he reported, "yes , but I saw what happened (after stopping meds again), the police scared the heck out of me, it was a wake up call." Pt was told he would need very slow taper off BZD perhaps over 1 year by 0.25mg increments to be on safe side. Consider consultation with pharmacy regarding cross taper onto longer acting BZD ie/Valium if this could allow for decr dosing frequency and increased outpt compliance (to bid or qd dosing). -Pt willing to continue with outpt PCP Dr. Treviño and return to [facility] for f/u and monitoring. Will need to have intake again since no [facility] tx since 2006. -rec [facility] for more formal cog assessment. Pt scored 19/30 on MOCA upon strict scoring, but later when asked for date/place again, he was able to recall correctly (=21/30). Also to assist with outpt support svcs needed. -rec check Vit B12 and correct any deficiencies (preferentially initially with IM repletion), including even if low normal, given concerns for cognitive impairment. pt with risk factors for dementia, including TBI, and +FHx mother with dementia/etoh. -Utox/UA neg on 08/18. pt endorses hx of THC but not in ~1yr, denied etoh/drugs. -Additionally, if family concerns regarding ability to return home with additional support services ie/[facility], could consider rehab options at [facility] for individuals with acquired TBI, or other assisted/ supervised rehab. If pt qualifies, consider refer for inpt detox facility for bzd taper with close neuropsychiatric symptom monitoring. -could try and obtain to compare prior brain imaging from outside facility ( reportedly has MRI from last year, perhaps thru [facility] c[facility]). also consider oncology inpt as pt reports he had been referred for chemotherapy but refused as he had "cured" himself with healthy lifestyle changes. no CA f/u since 1 yr ago. -Will continue to follow and assess for evidence of any mood instability/ psychosis following restabilization on home medications. Objective: Vital Signs Temp Pulse Resp BP Pulse Ox 36.6 C 77 20 105/76 94 08/21/18 07:31 08/21/18 07:31 08/21/18 07:31 08/21/18 07:31 08/21/18 07:31 08/20/18 08/21/18 08/22/18 05:59 05:59 05:59 Intake Total 750 Balance 750 - Pending Discharge Pending Discharge Within 24 Hours: No Pending Discharge Within 48 Hours: No ICD10 Worksheet Patient Problems: Problems Problem Status Onset Acute psychosis Acute Absence seizure Acute Psychosis Acute
[2018-08-21] MEDS ORDERED: CYANO/VITAMIN B12 1000 MCG/ML VIAL IM ONE (15:48)
--- NOTE | 2018-08-21 15:50 | HOSPPROG ---
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, liposarcoma of testicle here w encephalopathy, joanne encephalopathy: alert, logical but different from how his children say he's been slightly tachy but not clearly in benzo withdrawal medical workup negative 08/19: unchanged i do not think he is still encephalopathic 08/20: alert but still tangential 08/21: expressed desire to "follow your recommendations and work with danelle" joanne: he has spent $500 K on [employer] in last few months, money he doesnt have he is tangential and paranoid children unaware of underlying bipolar but he has been on depakote/klonopin for > 20 years, which is most of their lives now back on depakote and klonopin, which he is taking per nursing this is likely unmasking of long dormant (because of medication) bipolar trigger for joanne, med dc unclear ?NPH: neurology does not believe this is NPH based on normal gait- patient actually jogged in the [place] this afternoon I agree and would not delay psychiatric treatment for this eval low b12: barely low and and probably not causative give IM X 1 and start po thereafter proph:L add lmwh dispo: change to inpt Objective: Vital Signs Temp Pulse Resp BP Pulse Ox 36.6 C 77 20 105/76 94 08/21/18 07:31 08/21/18 07:31 08/21/18 07:31 08/21/18 07:31 08/21/18 07:31 08/20/18 08/21/18 08/22/18 05:59 05:59 05:59 Intake Total 750 Balance 750 ICD10 Worksheet Patient Problems: Problems Problem Status Onset Acute psychosis Acute Absence seizure Acute Psychosis Acute
--- NOTE | 2018-08-21 17:46 | ASMTCMCOM ---
CM Note CM Note Notes: Spoke with psychiatrist, hospitalist, pt's son and several Neuropsych facilities for discharge planning. Pt's son Beto is acting as proxy while pt is non-decisional, however proxy form still needs to be initiated and signed by Beto when her returns to hospital. Margie Cabello, director also aware of case. CM [facility] as a [facility] term rehab with LTC options specializing in TBI, chronic mental illness and cognitive dysfunction. Referral faxed to [facility]. (also [facility] but facility did not receive.) Pt screened for LTC Medicaid by [place], and son Beto given information about [facility] and encouraged to visit [facility]. Son Beto also seeking legal services for MDPOA and Financial POA. CM to follow. D/C Plan: TBD [facility] v other SNF Date Signed: 08/21/2018 05:46 PM Electronically Signed By:Norma Thomas
[2018-08-21] MEDS: PATCH REMOVAL 1 EA PATCH TD SCH (22:31)
[2018-08-22] MEDS: DIVALPROEX NA 250 MG TAB PO SCH ×3 (08:13→20:55)
[2018-08-22] MEDS: ENOXAPARIN 40 MG/0.4 ML SYR SC SCH (08:13)
[2018-08-22] MEDS: CYANO/VITAMIN B12 1000 MCG TAB PO SCH (08:13)
[2018-08-22] MEDS: clonazePAM 1 MG TAB PO SCH ×3 (08:13→20:55)
--- NOTE | 2018-08-22 16:16 | HOSPPROG ---
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, liposarcoma of testicle here w encephalopathy, joanne encephalopathy: alert, logical but different from how his children say he's been slightly tachy but not clearly in benzo withdrawal medical workup negative 08/19: unchanged i do not think he is still encephalopathic 08/20: alert but still tangential 08/21: expressed desire to "follow your recommendations and work with danelle" joanne: he has spent $500 [address] on [employer] in last few months, money he doesnt have he is tangential and paranoid children unaware of underlying bipolar but he has been on depakote/klonopin for > 20 years, which is most of their lives now back on depakote and klonopin, which he is taking per nursing this is likely unmasking of long dormant (because of medication) bipolar trigger for joanne, med dc unclear ?NPH: neurology does not believe this is NPH based on normal gait- patient actually jogged in the [place] this afternoon I agree and would not delay psychiatric treatment for this eval low b12: barely low and and probably not causative give IM X 1 and start po thereafter proph:L add lmwh dispo: change to inpt Subjective: b12 started. no complaints Objective: Vital Signs Temp Pulse Resp BP Pulse Ox 36.7 C 98 18 94/59 L 92 08/22/18 07:55 08/22/18 07:55 08/22/18 07:55 08/22/18 07:55 08/22/18 07:55 08/21/18 08/22/18 08/23/18 05:59 05:59 05:59 Intake Total 750 700 Balance 750 700 - Physical Exam Constitutional: no apparent distress, appears nourished Eyes: PERRL, anicteric sclera Ears, Nose, Mouth, Throat: moist mucous membranes, hearing normal Cardiovascular: regular rate and rhythym, no murmur, rub, or gallop Respiratory: no respiratory distress, no rales or rhonchi Gastrointestinal: normoactive bowel sounds, soft, non-tender abdomen Genitourinary: No taveras in urethra Skin: warm, normal color Musculoskeletal: full muscle strength Neurologic: AAOx3 ICD10 Worksheet Patient Problems: Problems Problem Status Onset Acute psychosis Acute Absence seizure Acute Psychosis Acute
--- NOTE | 2018-08-22 17:16 | ASMTCMCOM ---
CM Note CM Note Notes: Discussed with ZEYNEP Silvestre and Pt still not decisional at this time. Contacted Vaishnavi at [facility] and Vaishnavi is concern about Pt being able to meet the Insurance deduction. CM will contact the financial office at [facility] tomorrow to explore the needs and work with Mady ([facility] financial advise)jorge to set Pt up for skilled nursing coverage. CM available for needs. PLAN: TBD Date Signed: 08/22/2018 05:15 PM Electronically Signed By:Kerri Mercado
[2018-08-22] MEDS: PATCH REMOVAL 1 EA PATCH TD SCH (21:02)
[2018-08-23] MEDS: CYANO/VITAMIN B12 1000 MCG TAB PO SCH (08:01)
[2018-08-23] MEDS: clonazePAM 1 MG TAB PO SCH ×3 (08:01→21:09)
[2018-08-23] MEDS: DIVALPROEX NA 250 MG TAB PO SCH ×3 (08:01→21:09)
[2018-08-23] MEDS: ENOXAPARIN 40 MG/0.4 ML SYR SC SCH (08:01)
--- NOTE | 2018-08-23 13:02 | HOSPPROG ---
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, liposarcoma of testicle here w encephalopathy, joanne encephalopathy: alert, logical but different from how his children say he's been slightly tachy but not clearly in benzo withdrawal medical workup negative 08/19: unchanged i do not think he is still encephalopathic 08/20: alert but still tangential 08/21: expressed desire to "follow your recommendations and work with you" 08/23: resolved joanne: he has spent $500 K on [employer] in last few months, money he doesnt have he is tangential and paranoid children unaware of underlying bipolar but he has been on depakote/klonopin for > 20 years, which is most of their lives now back on depakote and klonopin, which he is taking per nursing this is likely unmasking of long dormant (because of medication) bipolar trigger for joanne, med dc unclear ?NPH: neurology does not believe this is NPH based on normal gait- patient actually jogged in the [place] this afternoon I agree and would not delay psychiatric treatment for this eval low b12: barely low and and probably not causative give IM X 1 and start po thereafter proph:L add lmwh dispo: change to inpt Subjective: no complaints Objective: Vital Signs Temp Pulse Resp BP Pulse Ox 36.4 C 73 16 98/74 L 93 08/23/18 08:00 08/23/18 08:00 08/23/18 08:00 08/23/18 08:00 08/23/18 08:00 08/22/18 08/23/18 08/24/18 05:59 05:59 05:59 Intake Total 700 Balance 700 - Physical Exam Constitutional: no apparent distress, appears nourished Eyes: PERRL, anicteric sclera Ears, Nose, Mouth, Throat: moist mucous membranes, hearing normal Cardiovascular: regular rate and rhythym, no murmur, rub, or gallop Respiratory: no respiratory distress, no rales or rhonchi Gastrointestinal: normoactive bowel sounds, soft, non-tender abdomen Genitourinary: no bladder fullness, No taveras in urethra Skin: warm, normal color Musculoskeletal: full muscle strength, no muscle tenderness Neurologic: AAOx3, sensation intact bilaterally Psychiatric: interacting appropriately, not anxious Lymph, Heme, Immunologic: no cervical LAD ICD10 Worksheet Patient Problems: Problems Problem Status Onset Acute psychosis Acute Absence seizure Acute Psychosis Acute
--- NOTE | 2018-08-23 15:35 | ASMTCMCOM ---
CM Note CM Note Notes: Pts case discussed w/ Dr. Barboza and Yolande, registered nurse hh case manager. CM spoke to Vaishnavi at [facility] (P#: [phone]). She cannot accept pt until he has been approved by Medicaid and has LTC Medicaid. Ashly stopped by and had pts son sign Medicaid application. Pt is not decisional today. CM had Cliff, son sign proxy paperwork. CM completed ultc-100 and faxed it to [facility]. A copy of the ULTC-100 is in pts chart. Referrals made to [facility] and [facility]. Monica from [facility] will stop by to evaluate pt. CM suggested that it might be a good idea for pts kids to start getting guardianship. CM to follow. Plan: TBD Date Signed: 08/23/2018 03:34 PM Electronically Signed By:ANDRES Cobos
[2018-08-23] MEDS: PATCH REMOVAL 1 EA PATCH TD SCH (21:21)
[2018-08-24] MEDS: CYANO/VITAMIN B12 1000 MCG TAB PO SCH (08:13)
[2018-08-24] MEDS: clonazePAM 1 MG TAB PO SCH ×3 (08:14→21:45)
[2018-08-24] MEDS: DIVALPROEX NA 250 MG TAB PO SCH ×3 (08:14→21:45)
[2018-08-24] MEDS: ENOXAPARIN 40 MG/0.4 ML SYR SC SCH (08:14)
--- NOTE | 2018-08-24 11:32 | ASMTCMCOM ---
CM Note CM Note Notes: Moniac Lechuga here today. She met with patient and feels he's appropriate for their [facility] facility. She called son/proxy Beto who asked for some time to think about it. He will also contact the SNF's financial office to make sure that costs are understood. Hoda, nitrate operator from [facility], will do patient's functional assessment for SNF today. The application for LTC Medicaid was submitted yesterday. Patient also has Medicare part A. Plan discussed w hospitalist who anticipates d/c to SNF Thursday 08/24 given the need to make sure patient has everything in place for LTC Medicaid/[facility] assessment. Case Management will continue to follow. Date Signed: 08/24/2018 11:31 AM Electronically Signed By:Jacy Patino RN
--- NOTE | 2018-08-24 14:48 | HOSPPROG ---
Hospitalist Progress Note Assessment/Plan: The patient is a 53-year-old male with PMH TBI, liposarcoma who was admitted for encephalopathy and joanne. ASSESSMENT/PLAN: Suspected bipolar disorder with acute manic episode Neurocognitive disorder, unspecified Chronic hydrocephalus H/o TBI H/o anxiety/depression H/o liposarcoma R testicle, s/p orchiectomy Encephalopathy, 2/2 psych medication withdrawal/noncompliance - resolved -Psych recs appreciated - long BZD taper over 1 year, continue current psych medications and avoid abrupt DC of meds, FU w/ outpt PCP Dr. Treviño and [facility]. -Reviewed cog eval - pt got MOCA score 23/30. -Medically stable for transfer to another facility. -Pt lacks medical capacity. Renewed hold. -This patient is new to me. Reviewed patient's chart/records for this visit. VTE prophylaxis: Lovenox. Code Status: Full code. Status: inp for > 2 midnight stay. Disposition: Med surge with discharge anticipated on Monday ____ SUBJECTIVE: Today patient feels well. OBJECTIVE: Physical Exam: General: The patient is a male who is alert and in no acute distress. HEENT: normocephalic, extraocular movements intact, conjunctivae clear. Mucous membranes moist. Neck: trachea midline, no visible masses. CV: +S1/S2, RRR, no MRG. Resp: unlabored, CTAB no RRW. Abd: soft and nondistended. Musculoskeletal: Normal muscle tone/bulk. Neuro: cranial nerves II - XII grossly intact. Intact gross motor and sensory function. Psych: Appropriate mood and appropriate affect. Skin: No pallor. No petechiae. Heme/lymph: No peripheral edema at bilateral lower extremities. Objective: Vital Signs Temp Pulse Resp BP Pulse Ox 36.4 C 75 16 109/82 H 95 08/24/18 08:00 08/24/18 08:00 08/24/18 08:00 08/24/18 08:00 08/24/18 08:00 08/23/18 08/24/18 08/25/18 05:59 05:59 05:59 Intake Total 350 Balance 350 - Time Spent With Patient Time Spent with Patient: greater than 35 minutes Time Spent with Patient: Greater than 35 minutes spent on this patients care, greater than 50% of time spent counseling, educating, and coordinating care regarding the above mentioned plan. ICD10 Worksheet Patient Problems: Problems Problem Status Onset Acute psychosis Acute Absence seizure Acute Psychosis Acute
--- NOTE | 2018-08-24 15:27 | ASMTCMCOM ---
CM Note CM Note Notes: Spoke w Hoda from [facility] ([phone]) who needs to write up her assessment and request a Level II PASRR. This will likely occur Sunday 08/27. When that is all complete, patient will be functionally qualified for SNF. I spoke w patient's son/proxy Beto who is going to meet w financial people at [facility] on Monday to make sure that everything is in order. Finally, I spoke w Dr Radha Mathew who states that she is available for any questions/concerns. She agrees that a SNF stay (with close medication monitoring) is appropriate for patient at this time, given that he was stable on his meds (notably Klonopin and and Depakote) for 20 years. Case Management will follow. Date Signed: 08/24/2018 03:27 PM Electronically Signed By:Jacy Patino RN
[2018-08-24] MEDS: PATCH REMOVAL 1 EA PATCH TD SCH (22:07)
[2018-08-25] MEDS: ENOXAPARIN 40 MG/0.4 ML SYR SC SCH (08:14)
[2018-08-25] MEDS: clonazePAM 1 MG TAB PO SCH ×3 (08:15→21:04)
[2018-08-25] MEDS: DIVALPROEX NA 250 MG TAB PO SCH ×3 (08:15→21:04)
[2018-08-25] MEDS: CYANO/VITAMIN B12 1000 MCG TAB PO SCH (08:15)
--- NOTE | 2018-08-25 15:27 | HOSPPROG ---
Hospitalist Progress Note Assessment/Plan: The patient is a 53-year-old male with PMH TBI, liposarcoma who was admitted for encephalopathy and joanne. ASSESSMENT/PLAN: Suspected bipolar disorder with acute manic episode Neurocognitive disorder, unspecified Chronic hydrocephalus H/o TBI H/o anxiety/depression H/o liposarcoma R testicle, s/p orchiectomy Encephalopathy, 2/2 psych medication withdrawal/noncompliance - resolved -Psych recs appreciated - long BZD taper over 1 year, continue current psych medications and avoid abrupt DC of meds, FU w/ outpt PCP Dr. Treviño and P. -Reviewed cog eval - pt got MOCA score 23/30. -Medically stable for transfer to another facility. -Pt lacks medical capacity. Renewed hold. -Discussed w CM -- pt's son Beto is visiting [facility] today and getting ready for the pt to be transferred to there. VTE prophylaxis: Lovenox. Code Status: Full code. Status: inp for > 2 midnight stay. Disposition: Med surge with discharge anticipated on Monday ____ SUBJECTIVE: Today patient feels well. OBJECTIVE: Physical Exam: General: The patient is a male who is alert and in no acute distress. HEENT: normocephalic, extraocular movements intact, conjunctivae clear. Mucous membranes moist. Neck: trachea midline, no visible masses. CV: +S1/S2, RRR, no MRG. Resp: unlabored, CTAB no RRW. Abd: soft and nondistended. Musculoskeletal: Normal muscle tone/bulk. Normal gait Neuro: cranial nerves II - XII grossly intact. Intact gross motor and sensory function. Psych: Appropriate mood and appropriate affect. Skin: No pallor. No petechiae. Heme/lymph: No peripheral edema at bilateral lower extremities. Objective: Vital Signs Temp Pulse Resp BP Pulse Ox 36.5 C 73 12 103/77 94 08/25/18 07:45 08/25/18 07:45 08/25/18 07:45 08/25/18 07:45 08/25/18 07:45 08/24/18 08/25/18 08/26/18 05:59 05:59 05:59 Intake Total 1250 Balance 1250 ICD10 Worksheet Patient Problems: Problems Problem Status Onset Acute psychosis Acute Absence seizure Acute Psychosis Acute
[2018-08-25] MEDS: PATCH REMOVAL 1 EA PATCH TD SCH (21:16)
[2018-08-26] MEDS: DIVALPROEX NA 250 MG TAB PO SCH ×3 (08:10→21:57)
[2018-08-26] MEDS: ENOXAPARIN 40 MG/0.4 ML SYR SC SCH (08:10)
[2018-08-26] MEDS: clonazePAM 1 MG TAB PO SCH ×3 (08:10→21:57)
[2018-08-26] MEDS: CYANO/VITAMIN B12 1000 MCG TAB PO SCH (08:10)
--- NOTE | 2018-08-26 11:35 | ASMTCMCOM ---
CM Note CM Note Notes: CM reviewed chart and discussed with ZEYNEP Crowder. PT/OT ordered, pending eval. Patients children to follow up with facilities on Monday, ACMI: functional assessment pending, likely on Monday as well. CM to follow. D/C Plan: SNF Date Signed: 08/26/2018 11:34 AM Electronically Signed By:Torri Ramos
--- NOTE | 2018-08-26 16:05 | HOSPPROG ---
Hospitalist Progress Note Assessment/Plan: The patient is a 53-year-old male with PMH TBI, liposarcoma who was admitted for encephalopathy and joanne. ASSESSMENT/PLAN: Suspected bipolar disorder Recent acute manic episode, resolved Neurocognitive disorder, unspecified Chronic hydrocephalus H/o TBI H/o anxiety/depression H/o liposarcoma R testicle, s/p orchiectomy Encephalopathy, 2/2 psych medication withdrawal/noncompliance - resolved -Psych recs appreciated - long BZD taper over 1 year, continue current psych medications and avoid abrupt DC of meds, FU w/ outpt PCP Dr. Treviño and P. -Reviewed cog eval - pt got MOCA score 30. -Medically stable for transfer to another facility. -Pt lacks medical capacity. Renewed hold. -Discussed w CM. VTE prophylaxis: Lovenox. Code Status: Full code. Status: inp for > 2 midnight stay. Disposition: Med surge with discharge anticipated on Monday ____ SUBJECTIVE: Today patient feels well. OBJECTIVE: Physical Exam: General: The patient is a male who is alert and in no acute distress. HEENT: normocephalic, extraocular movements intact, conjunctivae clear. Mucous membranes moist. Neck: trachea midline, no visible masses. Resp: unlabored. Abd: soft and nondistended. Musculoskeletal: Normal muscle tone/bulk. Normal gait. Neuro: cranial nerves II - XII grossly intact. Intact gross motor and sensory function. Psych: Appropriate mood and appropriate affect. Skin: No pallor. No petechiae. Heme/lymph: No peripheral edema at bilateral lower extremities. Objective: Vital Signs Temp Pulse Resp BP Pulse Ox 36.3 C 92 16 119/80 95 08/26/18 15:17 08/26/18 15:17 08/26/18 15:17 08/26/18 15:17 08/26/18 15:17 08/25/18 08/26/18 08/27/18 05:59 05:59 05:59 Intake Total 1250 1200 Balance 1250 1200 - Time Spent With Patient Time Spent with Patient: greater than 25 minutes Time Spent with Patient: Greater than 25 minutes spent on this patients care, greater than 50% of time spent counseling, educating, and coordinating care regarding the above mentioned plan. ICD10 Worksheet Patient Problems: Problems Problem Status Onset Acute psychosis Acute Absence seizure Acute Psychosis Acute
[2018-08-26] MEDS: PATCH REMOVAL 1 EA PATCH TD SCH (22:39)
[2018-08-27] MEDS: DIVALPROEX NA 250 MG TAB PO SCH ×3 (08:33→20:58)
[2018-08-27] MEDS: clonazePAM 1 MG TAB PO SCH ×3 (08:34→20:58)
[2018-08-27] MEDS: CYANO/VITAMIN B12 1000 MCG TAB PO SCH (08:34)
[2018-08-27] MEDS: ENOXAPARIN 40 MG/0.4 ML SYR SC SCH (08:34)
--- NOTE | 2018-08-27 13:39 | HOSPPROG ---
Hospitalist Progress Note Assessment/Plan: Presumed bipolar disorder with recent acute manic episode, resolved - he stopped his medications including depakote and klonopin, on which he was previously stable for a number of years. Seems he is nearly back to baseline now that he is back on his meds. -cont depakote and klonopin, plan for long-term taper of the latter per psych recommendations Toxic encephalopathy - 2/2 psych medication withdrawal/noncompliance - resolved , back to baseline Cognitive impairment - thought 2/2 to prior TBI, MOCA 30. Despite this, I thought that pt demonstrated reasonable insight into his situation and is alert and oriented x4. He demonstrates understanding of events leading up to hospitalization and understands why resuming his meds is what helped stabilize him. I think he does exhibit decisional capacity at this time and he is agreeable to SNF and possible transition to LTC. Possible NPH - I reviewed neurology notes and it is their opinion that his imaging is more c/w sequela of prior TBI rather than NPH. It was recommended he could f/u with Dr. Cyril [facility] prior to further w/u of NPH. H/o anxiety/depression H/o liposarcoma R testicle, s/p orchiectomy Full code DVT PPLX - Lovenox Dispo - cont inpt, possible d/c to SNF in am Subjective: Pt feels fine. No complaints. He understands his situation and is open to SNF and possibly LTC. He wants to be involved in the discussion rather than his son making decisions for him. Objective: Vital Signs Temp Pulse Resp BP Pulse Ox 36.4 C 74 14 102/68 94 08/27/18 07:31 08/27/18 07:31 08/27/18 07:31 08/27/18 07:31 08/27/18 07:31 08/26/18 08/27/18 08/28/18 05:59 05:59 05:59 Intake Total 1200 1000 Balance 1200 1000 - Physical Exam Constitutional: no apparent distress Eyes: PERRL Ears, Nose, Mouth, Throat: moist mucous membranes Cardiovascular: regular rate and rhythym Respiratory: no respiratory distress, clear to auscultation Gastrointestinal: normoactive bowel sounds, soft, non-tender abdomen Skin: warm Musculoskeletal: full muscle strength Neurologic: AAOx3 Psychiatric: interacting appropriately ICD10 Worksheet Patient Problems: Problems Problem Status Onset Acute psychosis Acute Absence seizure Acute Psychosis Acute
--- NOTE | 2018-08-27 14:40 | ASMTCMCOM ---
CM Note CM Note Notes: [facility] and [facility] have both completed evals and PASSR coordinator estimates letter of determination to be sent this evening and pt to be approved for LTC at [facility]. NAILHEAD SETTER also evaluated and suggested pt receive NAILHEAD SETTER in short term rehab at [facility] before transferring to LTC. Pt also deemed decisional by hospitalist today. CM communicated this to [facility] and they will be sending site safety representative to have pt sign the paperwork on his own. CM also spoke with pt's son Beto and confirmed with pt that they are both onboard with this plan. Pt likely to discharge to [facility] SNF tomorrow. CM to follow. D/C Plan: [facility] SNF and LTC Date Signed: 08/27/2018 02:39 PM Electronically Signed By:Norma Thomas
[2018-08-28] MEDS: PATCH REMOVAL 1 EA PATCH TD SCH ×2 (00:09→19:22)
[2018-08-28] MEDS: clonazePAM 1 MG TAB PO SCH ×3 (08:24→22:22)
[2018-08-28] MEDS: DIVALPROEX NA 250 MG TAB PO SCH ×3 (08:25→22:22)
[2018-08-28] MEDS: ENOXAPARIN 40 MG/0.4 ML SYR SC SCH (08:25)
[2018-08-28] MEDS: CYANO/VITAMIN B12 1000 MCG TAB PO SCH (08:25)
--- NOTE | 2018-08-28 16:40 | HOSPPROG ---
Hospitalist Progress Note Assessment/Plan: Presumed bipolar disorder with recent acute manic episode, resolved - he stopped his medications including depakote and klonopin, on which he was previously stable for a number of years. Seems he is nearly back to baseline now that he is back on his meds. -cont depakote and klonopin, plan for long-term taper of the latter per psych recommendations Toxic encephalopathy - 2/2 psych medication withdrawal/noncompliance - resolved , back to baseline Cognitive impairment - thought 2/2 to prior TBI, MOCA 23/30. Despite this, I thought that pt demonstrated reasonable insight into his situation and is alert and oriented x4. He demonstrates understanding of events leading up to hospitalization and understands why resuming his meds is what helped stabilize him. I think he does exhibit decisional capacity at this time and he is agreeable to SNF and possible transition to LTC. Possible NPH - I reviewed neurology notes and it is their opinion that his imaging is more c/w sequela of prior TBI rather than NPH. It was recommended he could f/u with Dr. Cyril Kenny at the [facility] prior to further w/u of NPH. H/o anxiety/depression H/o liposarcoma R testicle, s/p orchiectomy Full code DVT PPLX - Lovenox Dispo - cont inpt, d/c to SNF in am Subjective: Pt feels fine. No complaints. Objective: Vital Signs Temp Pulse Resp BP Pulse Ox 36.6 C 94 16 115/79 94 08/28/18 16:00 08/28/18 16:00 08/28/18 16:00 08/28/18 16:00 08/28/18 16:00 08/27/18 08/28/18 08/29/18 05:59 05:59 05:59 Intake Total 1000 400 Balance 1000 400 - Physical Exam Constitutional: no apparent distress Eyes: PERRL Ears, Nose, Mouth, Throat: moist mucous membranes Cardiovascular: regular rate and rhythym Respiratory: no respiratory distress, clear to auscultation Gastrointestinal: normoactive bowel sounds, soft, non-tender abdomen Skin: warm Musculoskeletal: full muscle strength Neurologic: AAOx3 Psychiatric: interacting appropriately ICD10 Worksheet Patient Problems: Problems Problem Status Onset Acute psychosis Acute Absence seizure Acute Psychosis Acute
[2018-08-29] MEDS: CYANO/VITAMIN B12 1000 MCG TAB PO SCH (08:03)
[2018-08-29] MEDS: ENOXAPARIN 40 MG/0.4 ML SYR SC SCH (08:04)
[2018-08-29] MEDS: clonazePAM 1 MG TAB PO SCH ×2 (08:04→15:42)
[2018-08-29] MEDS: DIVALPROEX NA 250 MG TAB PO SCH ×2 (08:04→15:43)
[2018-08-29 08:20] VITALS: BP 126/81
--- NOTE | 2018-08-29 13:41 | PDIAF ---
- Diagnosis Diagnosis: bipolar Code Status: Full Code - Medication Management Discharge Medications: electronically signed and located in the Home Medication List. - Orders Services needed: Registered Nurse, Master Aviation Boatswain'S Mate, Speech Language Pathologist Diet Recommendation: no restrictions on diet Additional Instructions: Follow up with Dr. Cyril Kenny at the [facility], movement specialist. - Follow Up Care Current Providers and Referrals: ARIANNA GALINDO [Primary Care Provider] - As per Instructions
--- NOTE | 2018-08-29 14:10 | GDS ---
[f rep st] DISCHARGE SUMMARY DISCHARGE DIAGNOSES: 1. Bipolar disorder with acute manic episode, now stable. 2. Toxic encephalopathy, resolved. 3. Cognitive impairment in the setting of previous traumatic brain injury with a MoCA of 23/30. 4. 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 5. History of anxiety depression. CONSULTANTS: Dr. Radha Mathew, Psychiatry. Dr. Deondre Brown, Neurology. HISTORY OF DETAILS: Please see History and Physical dated August 17, 2018. In brief, the patient is a 63-year-old male with history of bipolar disorder, who has been stable on Depakote and Klonopin for a number of years, when he decided to discontinue his medications. He then developed hallucinations, agitation and presented to the emergency department with acute encephalopathy. He was admitted to [facility] for further management. HOSPITAL COURSE: The patient was admitted to the med/surg unit. It is thought his acute symptoms ma y be consistent with a manic episode in the setting of presumed bipolar disorder, as he had recently stopped his medications. It is also noted he has a history of traumatic brain injury, which may incr ease his risk of psychiatric symptoms. The diagnosis of normal-pressure hydrocephalus was entertaine d and a neurology consult ensued. The neurologist felt that his psychiatric problems were more likel y due to his prior traumatic brain injury and psychiatric stabilization was recommended. It was sugg ested he could follow up with Dr. Cyril Kenny at the [facility] for follow up examination prior to considering any further workup for normal-pressure hydrocephalus. He was res tarted on his Depakote and Klonopin and his encephalopathy resolved. His mentation seems back to mil richards. He was able to demonstrate insight into the sequence of events that occurred and that resumin g his medications is what has helped him stabilize. He does seem decisional in terms of agreeing to go to nursing home facility with possible plans to transition to long-term care for ongoing suppor t. DISPOSITION: The patient is discharged to nursing home facility in stable condition. FOLLOWUP: 1. Dr. Cyril Kenny, [facility] ([place], [place]), movement disorder specialist, to consider the need for ongoing workup for normal-pressure hydrocephalus. 2. Dr. Yunior Treviño, primary care. DISCHARGE MEDICATIONS: Please see [employer] for completed updated medication list. Medications on di scharge include Tylenol 650 q.4 hours p.r.n., Lidoderm patch, melatonin 3 to 6 mg p.o. at bedtime p.r .n., vitamin B12 1000 mcg p.o. daily. He will continue his Depakote 250 mg p.o. t.i.d. and Klonopin 1 mg p.o. t.i.d. with consideration for long-term taper off benzodiazepines. /[id number]/MODL
--- NOTE | 2018-08-29 15:24 | ASMTLACE ---
GABRIELA Length of stay for Answers: 7-13 days current admission Acuity / Level of Answers: Yes Care: Did the patient have an inpatient admission? Comorbidities - select Answers: Dementia all that apply Other Notes: TBI # of Emergency department Answers: 1-2 visits in the last 6 months Social determinants Answers: Mental health diagnosis (anxiety, depression, pers onality disorders, etc.) Score: 16 Date Signed: 08/29/2018 03:24 PM Electronically Signed By:Nancy Mccormick RN
--- NOTE | 2018-08-29 15:29 | ASMTDCNOTE ---
Case Management Discharge Discharge Order Complete? Answers: Yes Patient to Obtain Answers: Other Notes: [facility] Medications Transportation Arranged Answers: Other Notes: Mtime Transport Transport will Pick (Date 08/29/2018 04:00 PM & Time) Faxed Final Orders Answers: Yes Agency/Facility Transfer Answers: Yes Report Printed & Faxed to Receiving Agency Family Notified Answers: Yes Discharge Comments Notes: D/w MD, final orders faxed. Jenna at [facility] notified, CM set up transportation. [facility] to be billed per Jenna, son Beto called. RN to call report. Date Signed: 08/29/2018 03:28 PM Electronically Signed By:Nancy Mccormick RN
--- NOTE | 2018-08-30 09:49 | ASDISCHSUM ---
Discharge Information Plan Status:SNF Medically Cleared to Leave: Discharge Date:08/29/2018 04:32 PM CM D/C Disposition:Fdc Facility ADT D/C Disposition:Fdc Facility Projected Discharge Date:08/20/2018 11:00 AM Transportation at D/C:Wheelchair Van Discharge Delay Reason: Follow-Up Date:08/20/2018 11:00 AM Discharge Slot: Final Diagnosis: Placement Information Referral Type:*Fpc/SNF Referral ID:[id number] Provider Name:Deneen Marquez Address 1:[address]. Address 2: City:[place] Selection Factors: State:[place] Patient Contact Information Contact Name:ELO Relationship:Daughter Address: Work Phone: City: [facility] Phone: [facility] Code: Email: Financial Information Financial Class:Medicare Primary Plan Desc:MEDICARE INPATIENT Primary Plan Number:[id number] Secondary Plan Desc: Secondary Plan Number: Assessment Information TLC Evaluation TLC Evaluation - Basic Information Evaluation Start Date and 08/16/2018 07:30 PM Time Hospital Status Answers: M1 Hold 72-hr M1 Hold Start Date 08/16/2018 06:00 PM and Time Patient statement Notes: "I'm ready to green party". (when asked how he was doing). Narrative Notes: Pt is a 63y/o male who was brought to the ED by police in response to concerns expressed by family and health care provider. The police placed her on an M1 for being a danger to self and others. Per M1, "Respondent contacted at home after concerns from family members and his halthcare provider. Respondent was hallucinating, talking to himself and had very erratic behavior. Daughter said he stopped taking meds (Klonopin) and is no longer eating/taking care of himself. Respondent was combative/resistant to being taken to hospital for M1". When the TLC clinician entered pt's room the pt was sleeping with the blanket pulled up and covering most of his face. He awoke and engaged in the evaluation without moving th blanket from his face. He spoke softly and politely and smiled in a somewhat mischievious manner. His thoughts were disorganized and delusional in content. He responded to most questions by speaking of going to a "redemption" later where there would be multiple people which included his mother, father and Rex. His sentences were at times incoherent, with his words seeming to be out of place. Pt denied hallucinations; he denied SI and HI. [facility] clinician spoke with son Beto and ex- Vonda. Per Vonda, pt was "normal" prior to TBI. Following the TBI he was "forgetful of important things..withdrawn.. lights were on..but no one was home.. inside of his own head". She recalls him being given Stelazine and Valium. Per Beto who was born after the TBI and while his father was taking medication, "I've never seen him like this". Beto speaks of various delusions his father is having, he's "waiting for a spaceship" and of him becoming agitated and threatening his sister, Sol. No one recalls any of pt's family members being diagnosed with a psychiatric illness nor of their father being diagnosed with one. Pt was last at [facility] on a medical unit 07/23/2018-07/27/2018. Pt's children brought him to the ED due to concerns over some of his behavior after he had stopped taking his medication prescribed following a TBI, which he had taken for 20 years; he had made a decision to become "organic". These medications were Klonopin and Depakote, doses unknown. Pt's children described his thinking at baseline as "very sharp", but that they had not seen him in 3 weeks and that now "his thinking seemed bizarre; he was paranoid and delusional in his thinking and was having episodes of staring off into space and being unresponsive". Following observation and evaluation at the hospital, the neurologist concluded that pt is having some neuropsychiatric manifestations of his TBI and decompensated when going off medications". While he was in the hospital his medications were restarted and his son noted that "he started to get back to himself". A [facility] clincican was asked to evaluate; the pt was deemed not to meet the requirements for an M1 hold and/or hospitalization. Diagnosis History Notes: TBI Prior suicide attempts Notes: Pt and family deny any suicide attempts. Prior hospitalizations Notes: Pt and family deny any pychiatric hospitalizations. Treatment Responses Notes: Pt has not has psychiatric treatment. His life appears to have been stable while taking his prescribed medications; he took them for 20 years, stopping them only recently. History of violence Notes: Pt and family deny any violence by pt. Therapist: None Psychiatrist: None Medications (name, dosage, route, freq uency) Notes: Depacote 750mg daily Clonazepam 1mg TID Allergies/Reaction Notes: Oxycodone Sleep Notes: Pt responds to inquiry by saying that he "does that a lot" Appetite Notes: Pt responds to inquiry by saying, "not too much of that". 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 he is followed by Dr Catarina Reynaga. Testicular cancer Seizure (pt denies ever having a seizure and this could not be corroborated by available medical records). Memory loss Substance use history (frequency, intensity, his tory, duration) Notes: Pt denies any past or current alcohol abuse or substance use. Family composition Notes: Pt has 2 adult children who live locally. Need for family Answers: Yes participation in patient's care Family psychiatric/substance abuse history Notes: Per pt MOC had dementia. Developmental history Notes: This is unknown as pt is unable to respond logically to questions re his development. Marital status/children Notes: Pt has an adult son and daughter who live locally. Living situation Notes: Pt lives by himself. Sexual history/orientation Notes: This is unknown. Pt is presently single. Peer support/family strengths Notes: Involved and supportive children. Rachna [phone] Beto [phone] Education level/history Notes: This is unknown due to pt's inability to communicate coherently. Work history Notes: Pt receives disability payments through [employer]. Notes: Pt is not presently in the . Legal Notes: Pt denies. Baptist/Spiritual Notes: this is unknown, but pt's delusions do include references to Rex. Leisure Notes: This is unknown due to pt's inability to communicate coherently. Collateral Notes: Children: Beto Horton Patient's strengths Answers: Good Parent (Please select at least TWO strengths): Supportive Family [facility] Evaluation - Mental Status Exam Appearance: Answers: Clean Bizarre Eye Contact: Answers: Good/Direct Mood: Answers: Euthymic Affect: Answers: Calm Congruent w/ Mood Happy Relaxed Behavior: Answers: Cooperative Speech: Answers: Irrelevant Illogical Incoherent Flight of Ideas Loose Associations Nonsensical Perseverating Soft Word Salad Thought Process: Answers: Disorganized Confused Loose Associations Tangential Insight: Answers: Poor Judgement: Answers: Poor Delusions: Answers: Grandiose Mood-Congruent Baptist/Spiritual Pt reported to have Answers: No suicidal/self-injuring ideation/behavior? Pt reported to be making Answers: No suicidal/self-injuring threats? Pt reported to have Answers: No aggression/assault ideation/behavior? Pt reported to be making Answers: No aggression/assault threats? Pt exhibits inability to Answers: Yes care for self/grave disability? Ideation/behavior is Answers: No chronic? Pt has access to means to Answers: No execute the plan? Ideation involves Answers: No serious/lethal intent? Ideation has Answers: No delusional/hallucinatory content? History of Answers: No suicidal/self-injuring ideation, behavior, or threats? History of Answers: No aggressive/assaultive ideation, behavior, or threats? History of serious Answers: No physical harm to self/others while in treatment setting? [facility] Evaluation - Suicide/Homicide Risk Suicide Risk Factors: Answers: Psychotic Disorder Serious Health Issue w/ Functional Impairment Homicide/violence risk Answers: None factors: Current Suicidal Answers: No Ideation? Current Suicidal Ideation Answers: No in the Past 48 Hours? Current Suicidal Ideation Answers: No in the Past Month? Current Suicidal Answers: No Ideation, Worst Ever? Suicide Internal Answers: Other Notes: Not depressed Protective Factors: Suicide External Answers: Responsibility to Protective Factors: Children Ranking of patient's Answers: Low suicidal risk: Ranking of patient's Answers: Low homicidal risk: [facility] Evaluation - Wrap-up BDI Total Score: Pt unable to complete BSS Total Score: Pt unable to complete AXIS I Diagnosis (include DSM-V and ICD-10 codes), must also be entered in [employer], which is the source of truth. 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 The M1 hold was lifted by Dr messer 08/17/2018 at :02. Pt was placed on a medical detainer and transferred to a medical floor. Dr Mathew will consult with pt tomorrow. Evaluation End Date and 08/16/2018 11:30 PM Time (HH:MM): Date Signed: 08/17/2018 12:07 AM Electronically Signed By:Shalini Yu TLC Discharge Disposition TLC Discharge Disposition Disposition: Answers: Admit Disposition Notes: Notes: It remained unclear as to what may be causing pt's symptoms. It was decided to place pt on a medical floor to rule out a medical rather than a psyychiatric cause. Dr Mathew will consult with pt tomorrow. He has been placed on a medical detainer. Discharge Concerns/Recommendations: Notes: In consultation with [facility] ED Calvin PRUITT and on-call psychiatrist,Dr Mathew , both concurred that Pt does not appear to meet 27-65 criteria requiring psychiatric hospitalization as Pt does not appear to be an imminent risk of harm to self or others due to a mental illness condition. The M1 hold was lifted by Dr Messer 08/17/2018 at :02. Pt was placed on a medical detainer and transferred to a medical floor. Dr Mathew will consult with pt tomorrow. Was patient given the Answers: Not applicable Inpatient Behavioral Health Prohibited Belongings List while in the ED? Psychiatrist vacating ED physician, Dr Messer Hold: Date and time M1 hold 08/17/2018 12:02 AM vacated (time format is hh:mm): Type of Hold: Answers: M1/72-hour Hold Hold initiated by: Answers: Police Date Signed: 08/17/2018 12:10 AM Electronically Signed By:Shalini uY LACE LACE Length of stay for Answers: 7-13 days current admission Acuity / Level of Answers: Yes Care: Did the patient have an inpatient admission? Comorbidities - select Answers: Dementia all that apply Other Notes: TBI # of Emergency department Answers: 1-2 visits in the last 6 months Social determinants Answers: Mental health diagnosis (anxiety, depression, pers onality disorders, etc.) Score: 16 Date Signed: 08/29/2018 03:24 PM Electronically Signed By:Nancy Mccormick RN [facility] CM Progress Note CM Note CM Note Notes: Pt is a 63 y/o man admitted for psychosis. Pt was seen by [facility] and cleared of his M1 hold. Dr. Mathew will be seeing pt today. It appears that pt may have stopped taking his psych meds. It is uncertain if pt will have any d/c needs at this time. Pt has supportive kids and an ex . CM to follow. Plan: TBD Date Signed: 08/17/2018 11:16 AM Electronically Signed By:ANDRES Cobos [facility] CHAN Progress Note CM Note CM Note Notes: Spoke with pt, hospitalist and pt's son Beto ([phone]) who has asked to be kept in the loop as soon as any new developments arise. Psychiatry consult did not recommend inpatient behavioral health as pt is largely appropriate, however Mathew ordered [facility] cog eval - still pending - as pt may benefit from short term rehab in order to stabilze medications and regain cognitive function. Pt is agreeable and is also interested in residential assisted living solution. Referrals sent to several SNFs in the area and to several in [place] near son's home. [employer] contacted to screen pt for Medicaid and LTC medicaid at son's request. CM also provided son contact information for [facility] to begin the process of researching medical power of tax attorney and financial power of tax attorney as pt is also agreeable to this. CM also gave son contact information for [employer] and [facility] which are both income-based. D/C Plan: SNF short term rehab Date Signed: 08/20/2018 04:38 PM Electronically Signed By:Norma Thomas [facility] Progress Note CM Note CM Note Notes: Spoke with psychiatrist, hospitalist, pt's son and several [facility] facilities for discharge planning. Pt's son Beto is acting as proxy while pt is non-decisional, however proxy form still needs to be initiated and signed by Beto when her returns to hospital. Margie Cabello, director also aware of case. [facility] as a [facility] term rehab with LTC options specializing in TBI, chronic mental illness and cognitive dysfunction. Referral faxed to Vaishnavi shaw. (also sent in [employer] but facility did not receive.) Pt screened for LTC Medicaid by [employer], and son Beto given information about [employer] and encouraged to visit [facility]. Son Beto also seeking legal services for MDPOA and Financial POA. CM to follow. D/C Plan: TBD [facility] v other [facility] Date Signed: 08/21/2018 05:46 PM Electronically Signed By:Norma Thomas [facility] Progress Note CM Note CM Note Notes: Discussed with ZEYNEP Silvestre and Pt still not decisional at this time. Contacted Vaishnavi at [facility] and Vaishnavi is concern about Pt being able to meet the Insurance deduction. CM will contact the financial office at [facility] tomorrow to explore the needs and work with Mady ([facility] financial advise)jorge to set Pt up for long line teamster coverage. CM available for needs. PLAN: TBD Date Signed: 08/22/2018 05:15 PM Electronically Signed By:Kerri Mercado [facility] Progress Note CM Note CM Note Notes: Pts case discussed w/ Dr. Barboza and Yolande, channel marketing program manager. CHAN spoke to Vaishnavi at [facility] (P#: [phone]). She cannot accept pt until he has been approved by Medicaid and has LTC Medicaid. Ashly stopped by and had pts son sign Medicaid application. Pt is not decisional today. CM had Cliff, son sign proxy paperwork. CM completed ultc-100 and faxed it to [facility]. A copy of the ULTC-100 is in pts chart. Referrals made to [facility] and [facility]. Monica from [facility] will stop by to evaluate pt. CM suggested that it might be a good idea for pts kids to start getting guardianship. CM to follow. Plan: TBD Date Signed: 08/23/2018 03:34 PM Electronically Signed By:ANDRES Cobos [facility] CM Progress Note CM Note CM Note Notes: Monica from [facility] here today. She met with patient and feels he's appropriate for their [facility] facility. She called son/proxy Beto who asked for some time to think about it. He will also contact the SNF's financial office to make sure that costs are understood. Hoda, carpet weaver from [facility], will do patient's functional assessment for SNF today. The application for LTC Medicaid was submitted yesterday. Patient also has Medicare part A. Plan discussed w hospitalist who anticipates d/c to SNF Thursday 08/24 given the need to make sure patient has everything in place for LTC Medicaid/[facility] assessment. Case Management will continue to follow. Date Signed: 08/24/2018 11:31 AM Electronically Signed By:Jacy Patino RN [facility] CHAN Progress Note CM Note CM Note Notes: Spoke zachary Drummond from [facility] ([phone]) who needs to write up her assessment and request a Level II PASRR. This will likely occur Sunday 08/27. When that is all complete, patient will be functionally qualified for SNF. I spoke w patient's son/proxy Beto who is going to meet w financial people at [facility] SNF on Monday to make sure that everything is in order. Finally, I spoke w Dr Radha Mathew who states that she is available for any questions/concerns. She agrees that a SNF stay (with close medication monitoring) is appropriate for patient at this time, given that he was stable on his meds (notably Klonopin and and Depakote) for 20 years. Case Management will follow. Date Signed: 08/24/2018 03:27 PM Electronically Signed By:Jacy Patino RN [facility] Progress Note CM Note CM Note Notes: CM reviewed chart and discussed with ZEYNEP Crowder. PT/OT ordered, pending eval. Patients children to follow up with facilities on Monday, [facility]: functional assessment pending, likely on Monday as well. CM to follow. D/C Plan: SNF Date Signed: 08/26/2018 11:34 AM Electronically Signed By:Torri Ramos [facility] CM Progress Note CM Note CM Note Notes: [facility] and [facility] have both completed evals and PASSR coordinator estimates letter of determination to be sent this evening and pt to be approved for LTC at [facility]. [facility] also evaluated and suggested pt receive [facility] in short term rehab at [facility] before transferring to LTC. Pt also deemed decisional by hospitalist today. CM communicated this to [facility] and they will be sending hospital sales representative to have pt sign the paperwork on his own. CM also spoke with pt's son Beto and confirmed with pt that they are both onboard with this plan. Pt likely to discharge to [facility] tomorrow. CM to follow. D/C Plan: [facility] SNF and LTC Date Signed: 08/27/2018 02:39 PM Electronically Signed By:Norma Thomas Case Management Discharge Plan Note Case Management Discharge Discharge Order Complete? Answers: Yes Patient to Obtain Answers: Other Notes: [facility] Medications Transportation Arranged Answers: Other Notes: [facility] Transport will Pick (Date 08/29/2018 04:00 PM & Time) Faxed Final Orders Answers: Yes Agency/Facility Transfer Answers: Yes Report Printed & Faxed to Receiving Agency Family Notified Answers: Yes Discharge Comments Notes: D/w MD, final orders faxed. Jenna at [facility] notified, CHAN set up transportation. [facility] to be billed per Jenna, son Beto called. RN to call report. Date Signed: 08/29/2018 03:28 PM Electronically Signed By:Nancy Mccormick RN Intervention Information Intervention Type:*Incorrect Registration Date of Service:08/17/2018 10:20 AM Patient Type:Inpatient Staff Member:ZEYNEP Barboza Courtney Hours: Discipline: Severity: Comment: Intervention Type:MOTA-Not Delivered Date of Service:08/17/2018 11:40 AM Patient Type:Observation Staff Member:Nicolasa Randall Hours: Discipline: Severity: Comment: Intervention Type:IM-Pt. Not Available Date of Service:08/29/2018 04:06 PM Patient Type:Inpatient Staff Member:Nicolasa Randall Hours: Discipline: Severity: Comment:Discussed with case Nancy mccracken si nce patient is non-decisional I will not complete the Medicare Important Message.
== END 2018-08-29 16:32 | DRG 71 ==
LOC: INTOOBSV 08-17 00:01 → F3E 08-17 01:58 → OBSVTOIN 08-18 15:47
PROVIDERS: ADMIT Family Medicine; ATTEND Hospitalist
DX: G93.40 Encephalopathy, unspecified (principal); F31.10 Bipolar disorder, current episode manic without psychotic features, unspecified; G91.2 (Idiopathic) normal pressure hydrocephalus; F41.8 Other specified anxiety disorders; R62.7 Adult failure to thrive; R41.89 Other symptoms and signs involving cognitive functions and awareness; S06.9X0S Unspecified intracranial injury without loss of consciousness, sequela; Z91.14 Patient's other noncompliance with medication regimen; Z79.899 Other long term (current) drug therapy
CPT/HCPCS: 80305; 82607-90; 92507-GN; 92523-GN; 97161-GP; 97165-GO; G0378; G0480; J1650; J3420